=== PATIENT | male | born 1995 | race Caucasian/White ===

== ENCOUNTER 2016-06-12 20:25 | Emergency (ER) | payer OTHER ==
[2016-06-12 20:54] VITALS: BP 152/93
--- NOTE | 2016-06-12 20:58 | ED ---
mily Alvarez Timothy, scribed for Ricki Armendariz MD on 06/12/16 at 2053 . Psychiatric Complaint - HPI Summary HPI Summary: Drew Barber is a 20 yo male presenting to [facility] for a mental health evaluation. He is presenting to [facility] voluntarily. He states he feels paranoid, which has been going on for the past 2 weeks. He states he put his phone in the toilet, which prompted him to present tonight. He states he is not on medication for paranoia. He states he took LSD at [employer] two years ago and since then has had occasional out-of body experiences. He denies any previous MHx. - History Of Current Complaint Time Seen by Provider: 06/12/16 20:46 Hx Obtained From: Patient Onset/Duration: Sudden Onset, Lasting Weeks, Still Present Timing: Constant Severity Initially: Moderate Severity Currently: Moderate Character: Anxious - paranoid Associated Signs And Symptoms: Positive: Paranoid Behavior - Allergies/Home Medications Allergies/Adverse Reactions: Allergies Allergy/AdvReac Type Severity Reaction Status Date / Time No Known Allergies Allergy Verified 08/27/15 15:40 PMH/Surg Hx/FS Hx/Imm Hx Psychiatric History: Reports: Hx Anxiety, Hx Attention Deficit Hyperactivity Disorder, Hx Depression, Hx Panic Disorder, Hx Community Mental Health Tx - AA/ NA/therapist, Hx of Violent Episodes Against Others, Hx Substance Abuse, Other Psychiatric Issues/Disorders - brother has schizophrenia Denies: Hx Eating Disorder, Hx Post Traumatic Stress Disorder, Hx Inpatient Treatment, Hx Schizophrenia, Hx Bipolar Disorder, Hx Suicide Attempt - Family History Known Family History: Positive: Other - schizophrenia, bipolar - Social History Alcohol Use: None Hx Substance Use: Yes - mushrooms, was prescribed adderall but made him anxious Substance Use Type: Reports: Marijuana, Other Substance Use Comment - Amount & Last Used: adderal, lionsmane mushrooms Hx Tobacco Use: No Smoking Status (MU): Never Smoked Tobacco Review of Systems Constitutional: Negative Eyes: Negative ENT: Negative Cardiovascular: Negative Respiratory: Negative Gastrointestinal: Negative Genitourinary: Negative Musculoskeletal: Negative Skin: Negative Neurological: Negative Psychological: Other - paranoia All Other Systems Reviewed And Are Negative: Yes Physical Exam Triage Information Reviewed: Yes Vital Signs On Initial Exam: Initial Vitals Temp Pulse Resp BP Pulse Ox 98.2 F 125 24 152/93 98 06/12/16 20:31 06/12/16 20:31 06/12/16 20:31 06/12/16 20:31 06/12/16 20:31 Vital Signs Reviewed: Yes Appearance: Positive: Well-Appearing, No Pain Distress Skin: Positive: Warm Eyes: Positive: SHELL ENT: Positive: Hearing grossly normal Neck: Positive: Supple Respiratory/Lung Sounds: Positive: Clear to Auscultation, Breath Sounds Present Cardiovascular: Positive: RRR Abdomen Description: Positive: Nontender, Soft Musculoskeletal: Positive: Strength/ROM Intact Neurological: Positive: Alert, Oriented to Person Place, Time Psychiatric: Positive: Depressed Diagnostics - Vital Signs Vital Signs Temp Pulse Resp BP Pulse Ox 06/12/16 20:31 98.2 F 125 24 152/93 98 - Laboratory Result Diagrams: 06/12/16 21:20 06/12/16 21:20 Lab Statement: Any lab studies that have been ordered have been reviewed, and results considered in the medical decision making process. Re-Evaluation - Re-Evaluation First Eval Comment: pt seen and cleared by crisis Course/Dx - Differential Dx/Clinical Impression Provider Diagnosis: Anxiety Discharge - Discharge Plan Condition: Stable Disposition: HOME Referrals: Enoc López MD [Primary Care Provider] - The documentation as recorded by the mily navarro Timothy accurately reflects the service I personally performed and the decisions made by me, Ricki Armendariz MD.
[2016-06-12 21:19] LABS: Urine Bacteria Absent (Absent); Urine Bilirubin Negative (Negative); Urine Glucose Negative (Negative); Urine Nitrite Negative (Negative)
[2016-06-12 21:24] LABS: Benzodiazepine Urine Screen None Detected (None Detect)
[2016-06-12 21:30] LABS: Hematocrit 49 % (42-52); Hemoglobin 16.6 g/dl (14.0-18.0); Mean Corpuscular HGB Conc 34 g/dl (31-36); Mean Corpuscular Hemoglobin 28 pg (27-31); Mean Corpuscular Volume 83 fL (80-94); Mean Platelet Volume 14 um3 (7.4-10.4); Red Blood Count 5.91 10^6/ul (4.0-5.4); Red Cell Distribution Width 13 % (10.5-15); White Blood Count 12.7 10^3/ul (3.5-10.8)
[2016-06-12 21:43] LABS: ALT 13 U/L (7-52); AST 15 U/L (13-39); Albumin 4.4 g/dL (3.2-5.2); Alkaline Phosphatase 118 U/L (34-104); Anion Gap 8 mmol/L (2-11); BUN/Creatinine Ratio 11.9 (8-20); Blood Urea Nitrogen 10 mg/dL (6-24); CO2 Carbon Dioxide 23 mmol/L (22-32); Calcium 9.6 mg/dL (8.6-10.3); Chloride 104 mmol/L (101-111); EGFR African American 146.9 (>60); EGFR Non-African American 114.3 (>60); Globulin 3.1 g/dL (2-4); Glucose 107 mg/dL (70-100); Potassium 3.1 mmol/L (3.5-5.0); Sodium 135 mmol/L (133-145); Total Protein 7.5 g/dL (6.4-8.9)
[2016-06-12 22:08] LABS: Acetaminophen < 15 mcg/mL; Alcohol < 10 mg/dL (<10); Salicylate < 2.50 mg/dL (<30)
[2016-06-12 22:18] LABS: TSH (Thyroid Stimulating Horm) 1.42 mcIU/mL (0.34-5.60)
== END 2016-06-12 23:55 | disposition home or self-care (01) ==
LOC: ED 20:25
DX: F41.9 Anxiety disorder, unspecified (principal)
CPT/HCPCS: 36415; 80053; 80307; 80320; 80329; 81003; 81015; 84443; 85025; 99283; G0480

== ENCOUNTER 2016-06-14 16:36 | Inpatient (IN) | payer OTHER ==
[2016-06-14 17:57] LABS: Hematocrit 51 % (42-52); Mean Corpuscular HGB Conc 33 g/dl (31-36); Mean Corpuscular Hemoglobin 28 pg (27-31); Mean Corpuscular Volume 84 fL (80-94); Mean Platelet Volume 14 um3 (7.4-10.4); Red Blood Count 6.05 10^6/ul (4.0-5.4); Red Cell Distribution Width 13 % (10.5-15); White Blood Count 10.9 10^3/ul (3.5-10.8)
[2016-06-14 17:58] LABS: Add Diff/Slide Review? Slide Review Added; Comments Flag Yes
[2016-06-14 18:00] LABS: ALT 17 U/L (7-52); AST 20 U/L (13-39); Albumin 4.8 g/dL (3.2-5.2); Alkaline Phosphatase 122 U/L (34-104); Anion Gap 11 mmol/L (2-11); Blood Urea Nitrogen 11 mg/dL (6-24); CO2 Carbon Dioxide 24 mmol/L (22-32); Chloride 102 mmol/L (101-111); EGFR African American 132.3 (>60); EGFR Non-African American 102.9 (>60); Globulin 3.4 g/dL (2-4); Glucose 90 mg/dL (70-100); Potassium 3.6 mmol/L (3.5-5.0); Sodium 137 mmol/L (133-145); Total Protein 8.2 g/dL (6.4-8.9)
[2016-06-14 18:20] LABS: Urine Bilirubin Negative (Negative); Urine Glucose Negative (Negative); Urine Nitrite Negative (Negative)
[2016-06-14 18:21] LABS: Acetaminophen < 15 mcg/mL; Alcohol < 10 mg/dL (<10); Salicylate < 2.50 mg/dL (<30)
[2016-06-14 18:29] LABS: TSH (Thyroid Stimulating Horm) 1.32 mcIU/mL (0.34-5.60)
[2016-06-14 18:29] LABS: Benzodiazepine Urine Screen None Detected (None Detect)
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
--- NOTE | 2016-06-15 00:37 | ED ---
mily Alvarez Timothy, magdalena for Parish Helton on 06/15/16 at 0036 . Progress - Progress Note Progress Note: Drew Barber is a 20 yo male presenting to [facility] with SI and paranoia. - Consult/PCP Time Called: 20:14 Course/Dx - Course Course Of Treatment: Drew Barber is a 20 yo male presenting to [facility] with SI and paranoia. After mental health evaluation, he will be admitted to [facility] with SI. - Diagnoses Provider Diagnoses: Mental health problem The documentation as recorded by the mily navarro Timothy accurately reflects the service I personally performed and the decisions made by Sunitha prieto Emmanuel.
[2016-06-15] MEDS ORDERED: Acetaminophen TAB* 325 MG PO PRN (04:07)
[2016-06-15] MEDS ORDERED: Al Hydrox/Mg Hydrox/Simet LIQ* 30 ML UDC PO PRN (04:07)
[2016-06-15] MEDS ORDERED: QUEtiapine TAB* 25 MG PO PRN (04:08)
[2016-06-15] MEDS: Vitamin THERAPEUTIC TAB PO SCH (08:25)
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
[2016-06-15] MEDS ORDERED: Nicotine Inhaler* 10 MG AMP INH PRN (17:32)
[2016-06-15] MEDS: Paliperidone TAB* 3 MG TAB PO SCH (21:05)
[2016-06-16] MEDS: Paliperidone TAB* 3 MG TAB PO SCH ×2 (09:25→20:57)
[2016-06-16] MEDS: Vitamin THERAPEUTIC TAB PO SCH (09:25)
--- NOTE | 2016-06-16 13:32 | PN ---
Subjective - Subjective Service Type: [id number] Hosp care 25 min moderate complexity Subjective: This clinician took over Merced's care today and we met for about 20 minutes in the comfort room. I left messages with his father, Nathaniel Barber, and his therapist, Mandeep Lenz. The patient is quite grandiose, telling me that his special skill, one which he has been granted unique gifts in, is making money. 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 "Faith changed my perspective...it changed my life." He goes into detail about persecutory delusions of how his older brother had hacked into his cell phone and caught him with pornographic images, including some homosexual content , and had embarrassed him by confronting him. An additional stressor has been his abstinence from cannabis over the last several weeks since becoming, in his words, an informant for the [place] police and having his dealer arrested. He has been feeling watched and followed since that time. He does endorse HI with thoughts, but not intent, to shoot his brother. He also voices ideas of reference here on the unit, reporting that he could control his roommate's actions last night as they were in their room sleeping. The patient refused his Invega this AM but is educated a little about this and agrees to take it tonight. He does acknowledge that he is having a psychotic episode. Objective - Appearance Appearance: Well Developed/Nourished Dysmorphic Features: No Hygiene: Normal Grooming: Well Kept - Behavior Psychomotor Activities: Normal Exhibits Abnormal Movement: No - Attitude and Relatedness Attitude and Relatedness: Psychotically Related Eye Contact: Fair - Speech Quality: Unpressured Latencies: Normal Quantity: Appropriate - Mood Patient's Decription of Mood: "Anxious" - Affect Observed Affect: Unvariable Affect Consistent with: Dysphoria - Thought Process Patient's Thought Process: Circumstantial Thought Content: Yes Homicidal Ideation, Yes Paranoid Ideation, No Passive Wish, No Suicidal Planning - Sensorium Experiencing Hallucinations: No, Sensorium is Clear Type of Hallucinations: Visual: No, Auditory: No, Command: No - Level of Consciousness Level of Consciousness: Alert Orientation: Yes Intact, Yes Orientated to Time, Yes Orientated to Place, Yes Orientated to Person - Impulse Control Impulse Control: Poor - Insight and Judgement Insight and Judgement: Impaired - Group Participation Particating in Group Activities: No - Medication Management Medication Management Adherence: No Assessment - Assessment Merits Inpatient Hospitalization: For Immediate Safety, For Stabilization Inpatient DSM-IV Dx: Unspecified Psychotic DO Clinical Impression: 20 y.o. single, white male with a history of habitual cannabis and remote hallucinogen abuse presented with psychotic symptoms of paranoia and HI directed at his brother. Plan - Plan Treatment Plan: Name: MERCED BARBER Birthdate: 1995 [id number] The patient is encouraged to comply with his prescribed paliperidone 3mg PO qday. Will seek collateral contact with the patient's family and outpatient therapist. Would perhaps consider long-term residential dual-diagnosis treatment as the family does have assets to pay for this. Will order MMPI. Continued Medication Management: Start Medication Medications: Current Medications Acetaminophen (Tylenol Tab*) 650 mg PO Q4H PRN PRN Reason: PAIN or TEMP > 101 F Al Hydrox/Mg Hydrox/Simethicone (Maalox Plus*) 30 ml PO Q4H PRN PRN Reason: INDIGESTION Clonazepam (Klonopin Tab(*)) 0.5 mg PO BID PRN PRN Reason: AGITATION/ANXIETY/INSOMNIA Multivitamins (Theragran Tab*) 1 tab PO DAILY [facility] Last Admin: 06/16/16 09:25 Dose: Not Given Nicotine (Nicotine Inhaler*) 10 mg INH Q2H PRN PRN Reason: CRAVING Paliperidone (Invega Tab*) 3 mg PO DAILY [facility] Last Admin: 06/16/16 09:25 Dose: Not Given Quetiapine Fumarate (Seroquel Tab*) 50 mg PO Q2H PRN PRN Reason: AGITATION - Discharge Plan Discharge Plan: Inpatient Hospitalization
--- NOTE | 2016-06-17 11:09 | PN ---
Subjective - Subjective Service Type: [id number] Hosp care 25 min moderate complexity Subjective: Merced was quite odd with me as we met in the hallway outside his room. He is complaining about environmental exposure to the bleach solution used by housekeeping to clean his bathroom. "I have a biological reaction to the chemicals. I have to get off this unit!" He makes intense eye contact, repetitively stating "I'm a human being. I have a soul." He insists that I look into his eyes and is bizarre in his interpersonal style. "It's OK. Now that I see into your eyes I know you care. You do great things here and it's inspiring me to make the world a better place." The patient informs me that he took his medication last night but staff confirms that this is untrue. I spoke with the patient outpatient therapist, Mandeep Obregon, who is advocating for residential treatment following discharge from the [facility]. The patient and I discuss residential treatment briefly and he seems to be in agreement that this would be helpful. Objective - Appearance Appearance: Well Developed/Nourished Dysmorphic Features: No Hygiene: Normal Grooming: Fairly Well Kept - Behavior Psychomotor Activities: Normal Exhibits Abnormal Movement: No - Attitude and Relatedness Attitude and Relatedness: Psychotically Related Eye Contact: Good - Speech Quality: Pressured Latencies: Normal Quantity: Appropriate - Mood Patient's Decription of Mood: "Upset" - Affect Observed Affect: Tense Affect Consistent with: Dysphoria - Thought Process Patient's Thought Process: Circumstantial Thought Content: Yes Paranoid Ideation, No Passive Wish, No Suicidal Planning, No Homicidal Ideation - Sensorium Experiencing Hallucinations: No, Sensorium is Clear Type of Hallucinations: Visual: No, Auditory: No, Command: No - Level of Consciousness Level of Consciousness: Alert Orientation: Yes Intact, Yes Orientated to Time, Yes Orientated to Place, Yes Orientated to Person - Impulse Control Impulse Control: Poor - Insight and Judgement Insight and Judgement: Impaired - Group Participation Particating in Group Activities: No - Medication Management Medication Management Adherence: No Assessment - Assessment Merits Inpatient Hospitalization: For Immediate Safety, For Stabilization Inpatient DSM-IV Dx: Unspecified Psychotic DO Clinical Impression: 20 y.o. single, white male with a history of habitual cannabis and remote hallucinogen abuse presented with psychotic symptoms of paranoia and HI directed at his brother. Plan - Plan Treatment Plan: Name: MERCED RANGEL Birthdate: 1995 [id number] The patient is encouraged to comply with his prescribed paliperidone 3mg PO qday. Will seek collateral contact with the patient's family. Would perhaps consider long-term residential dual-diagnosis treatment as the family does have assets to pay for this. Await MMPI. Continued Medication Management: Start Medication Medications: Current Medications Acetaminophen (Tylenol Tab*) 650 mg PO Q4H PRN PRN Reason: PAIN or TEMP > 101 F Al Hydrox/Mg Hydrox/Simethicone (Maalox Plus*) 30 ml PO Q4H PRN PRN Reason: INDIGESTION Clonazepam (Klonopin Tab(*)) 0.5 mg PO BID PRN PRN Reason: AGITATION/ANXIETY/INSOMNIA Multivitamins (Theragran Tab*) 1 tab PO DAILY [facility] Last Admin: 06/16/16 09:25 Dose: Not Given Nicotine (Nicotine Inhaler*) 10 mg INH Q2H PRN PRN Reason: CRAVING Paliperidone (Invega Tab*) 3 mg PO BEDTIME [facility] Last Admin: 06/16/16 20:57 Dose: Not Given Quetiapine Fumarate (Seroquel Tab*) 50 mg PO Q2H PRN PRN Reason: AGITATION - Discharge Plan Discharge Plan: Inpatient Hospitalization
[2016-06-17] MEDS: Vitamin THERAPEUTIC TAB PO SCH (11:10)
--- NOTE | 2016-06-17 11:50 | PN ---
[facility]: Group Therapy Note - Service Type Service Type: [id number] Group Psychotherapy - Cognitive Behavioral Group Therapy: Drew presented as angry and irritable in cbt programming, engaging in an accusatory discussion regarding being held by the hospital for financial gain. He remained angry and defiant in discussion, and left the group abruptly. He later apologized in individual contact, citing how he has been struggling with family conflict, and is open to receiving help.
[2016-06-17] MEDS ORDERED: Paliperidone TAB* 3 MG TAB PO ONE (12:00)
[2016-06-17] MEDS: Paliperidone TAB* 3 MG TAB PO SCH ×2 (18:44→22:04)
[2016-06-17] MEDS: clonazePAM TAB(*) 0.5 MG PO PRN (18:44)
[2016-06-18] MEDS: Vitamin THERAPEUTIC TAB PO SCH (10:31)
--- NOTE | 2016-06-18 18:09 | PN ---
Subjective - Subjective Service Type: 15960 Hosp care 15 min low complexity Subjective: Merced was in his room isolated from rest of the patient. Invited me to his bedside, but didn't make any eye contact. Spontaniuosly said that he was doing very well. I am not suicidal, homicidal or angry anymore. Taking all my meds he reports. Objective - Appearance Appearance: Well Developed/Nourished Dysmorphic Features: No Hygiene: Normal Grooming: Fairly Well Kept - Behavior Psychomotor Activities: Normal Exhibits Abnormal Movement: No - Attitude and Relatedness Attitude and Relatedness: Cooperative Eye Contact: Poor - Speech Quality: Unpressured Latencies: Normal Quantity: Appropriate - Mood Patient's Decription of Mood: "Fine" - Affect Observed Affect: Depressed Affect Consistent with: Dysphoria - Thought Process Patient's Thought Process: Coherent, Circumstantial Thought Content: No Passive Wish, No Suicidal Planning, No Homicidal Ideation, No Paranoid Ideation - Sensorium Experiencing Hallucinations: No, Sensorium is Clear Type of Hallucinations: Visual: No, Auditory: No, Command: No - Level of Consciousness Level of Consciousness: Alert Orientation: Yes Intact, Yes Orientated to Time, Yes Orientated to Place, Yes Orientated to Person - Impulse Control Impulse Control: Tenuous - Insight and Judgement Insight and Judgement: Poor - Group Participation Particating in Group Activities: No - Medication Management Medication Management Adherence: Yes Assessment - Assessment Merits Inpatient Hospitalization: For Stabilization, Pending Safe DC Plan Inpatient DSM-IV Dx: Unspecified Psychotic DO Plan - Plan Treatment Plan: Name: MERCED RANGEL Birthdate: 1995 [id number] Continued Medication Management: Continue Outpt Medication Medications: Current Medications Acetaminophen (Tylenol Tab*) 650 mg PO Q4H PRN PRN Reason: PAIN or TEMP > 101 F Al Hydrox/Mg Hydrox/Simethicone (Maalox Plus*) 30 ml PO Q4H PRN PRN Reason: INDIGESTION Clonazepam (Klonopin Tab(*)) 0.5 mg PO BID PRN PRN Reason: AGITATION/ANXIETY/INSOMNIA Last Admin: 06/17/16 18:44 Dose: 0.5 mg Multivitamins (Theragran Tab*) 1 tab PO DAILY [facility] Last Admin: 06/18/16 10:31 Dose: Not Given Nicotine (Nicotine Inhaler*) 10 mg INH Q2H PRN PRN Reason: CRAVING Paliperidone (Invega Tab*) 3 mg PO BEDTIME [facility] Last Admin: 06/17/16 22:04 Dose: Not Given Quetiapine Fumarate (Seroquel Tab*) 50 mg PO Q2H PRN PRN Reason: AGITATION - Discharge Plan Discharge Plan: Outpatient Follow Up Outpatient Program: TBD
[2016-06-18] MEDS: Paliperidone TAB* 3 MG TAB PO SCH (21:35)
[2016-06-19] MEDS: Vitamin THERAPEUTIC TAB PO SCH (08:50)
[2016-06-19] MEDS: clonazePAM TAB(*) 0.5 MG PO PRN ×2 (14:00→20:03)
[2016-06-19] MEDS: Paliperidone TAB* 3 MG TAB PO SCH (20:01)
[2016-06-20] MEDS: clonazePAM TAB(*) 0.5 MG PO PRN ×2 (08:27→14:01)
[2016-06-20] MEDS: Vitamin THERAPEUTIC TAB PO SCH (08:49)
--- NOTE | 2016-06-20 15:23 | PN ---
Subjective - Subjective Service Type: [id number] Hosp care 15 min low complexity Subjective: Merced has been declining his paliperidone, stating "It made me take strange hallways in my mind." He has less intense eye contact this morning than last week and does not appear quite as paranoid. He does complain of a lot of anxiety symptoms throughout his life, particularly of a social variety, and feels like clonazepam is the best medication for this. He is educated about the limits of benzodiazapines and we discuss a potential trial of an SRI, which he agrees to. He denies SI or HI. Objective - Appearance Appearance: Well Developed/Nourished Dysmorphic Features: No Hygiene: Normal Grooming: Well Kept - Behavior Psychomotor Activities: Normal Exhibits Abnormal Movement: No - Attitude and Relatedness Attitude and Relatedness: Psychotically Related Eye Contact: Fair - Speech Quality: Unpressured Latencies: Normal Quantity: Appropriate - Mood Patient's Decription of Mood: "Anxious" - Affect Observed Affect: Unvariable Affect Consistent with: Dysphoria - Thought Process Patient's Thought Process: Circumstantial Thought Content: Yes Paranoid Ideation, No Passive Wish, No Suicidal Planning, No Homicidal Ideation - Sensorium Experiencing Hallucinations: No, Sensorium is Clear Type of Hallucinations: Visual: No, Auditory: No, Command: No - Level of Consciousness Level of Consciousness: Alert Orientation: Yes Intact, Yes Orientated to Time, Yes Orientated to Place, Yes Orientated to Person - Impulse Control Impulse Control: Tenuous - Insight and Judgement Insight and Judgement: Poor - Group Participation Particating in Group Activities: No - Medication Management Medication Management Adherence: Partial Assessment - Assessment Merits Inpatient Hospitalization: For Immediate Safety, For Stabilization Inpatient DSM-IV Dx: Unspecified Psychotic DO Clinical Impression: 20 y.o. single, white male with a history of habitual cannabis and remote hallucinogen abuse presented with psychotic symptoms of paranoia and HI directed at his brother. Plan - Plan Treatment Plan: Name: MERCED RANGEL Birthdate: 1995 [id number] The patient is encouraged to comply with his prescribed paliperidone 3mg PO qday. A trial of citalopram 10mg PO qday will be initiated, mostly for anxiety. The patient's family will come in on Monday (06/22) for treatment and d/c planning. Would perhaps consider long-term residential dual-diagnosis treatment as the family does have assets to pay for this. Await MMPI. Continued Medication Management: Start Medication Medications: Current Medications Acetaminophen (Tylenol Tab*) 650 mg PO Q4H PRN PRN Reason: PAIN or TEMP > 101 F Al Hydrox/Mg Hydrox/Simethicone (Maalox Plus*) 30 ml PO Q4H PRN PRN Reason: INDIGESTION Citalopram Hydrobromide (Celexa Tab*) 10 mg PO DAILY [facility] Clonazepam (Klonopin Tab(*)) 0.5 mg PO BID PRN PRN Reason: AGITATION/ANXIETY/INSOMNIA Last Admin: 06/20/16 14:01 Dose: 0.5 mg Multivitamins (Theragran Tab*) 1 tab PO DAILY [facility] Last Admin: 06/20/16 08:49 Dose: Not Given Nicotine (Nicotine Inhaler*) 10 mg INH Q2H PRN PRN Reason: CRAVING Paliperidone (Invega Tab*) 3 mg PO BEDTIME [facility] Last Admin: 06/19/16 20:01 Dose: Not Given Quetiapine Fumarate (Seroquel Tab*) 50 mg PO Q2H PRN PRN Reason: AGITATION - Discharge Plan Discharge Plan: Inpatient Hospitalization
[2016-06-20] MEDS: Citalopram TAB* 10 MG PO SCH (16:17)
[2016-06-20] MEDS: Paliperidone TAB* 3 MG TAB PO SCH (22:24)
[2016-06-21] MEDS: clonazePAM TAB(*) 0.5 MG PO PRN ×2 (04:39→10:32)
[2016-06-21] MEDS: Citalopram TAB* 10 MG PO SCH (09:14)
[2016-06-21] MEDS: Vitamin THERAPEUTIC TAB PO SCH (09:14)
--- NOTE | 2016-06-21 11:45 | PN ---
Subjective - Subjective Service Type: [id number] Hosp care 15 min low complexity Subjective: The patient remains paranoid and informs me that he thinks a male peer is stalking him and attempting to gain information about him here on the unit so he can kill him after discharge. He has been refusing the paliperidone, claiming that it made him feel ill. He is willing to switch antipsychotics. Objective - Appearance Appearance: Well Developed/Nourished Dysmorphic Features: No Hygiene: Normal Grooming: Fairly Well Kept - Behavior Psychomotor Activities: Normal Exhibits Abnormal Movement: No - Attitude and Relatedness Attitude and Relatedness: Cooperative Eye Contact: Fair - Speech Quality: Unpressured Latencies: Normal Quantity: Appropriate - Mood Patient's Decription of Mood: "Great" - Affect Observed Affect: Tense Affect Consistent with: Dysphoria - Thought Process Patient's Thought Process: Circumstantial Thought Content: Yes Paranoid Ideation, No Passive Wish, No Suicidal Planning, No Homicidal Ideation - Sensorium Experiencing Hallucinations: No, Sensorium is Clear Type of Hallucinations: Visual: No, Auditory: No, Command: No - Level of Consciousness Level of Consciousness: Alert Orientation: Yes Intact, Yes Orientated to Time, Yes Orientated to Place, Yes Orientated to Person - Impulse Control Impulse Control: Poor - Insight and Judgement Insight and Judgement: Impaired - Group Participation Particating in Group Activities: No - Medication Management Medication Management Adherence: No Assessment - Assessment Merits Inpatient Hospitalization: For Immediate Safety, For Stabilization Inpatient DSM-IV Dx: Unspecified Psychotic DO Clinical Impression: 20 y.o. single, white male with a history of habitual cannabis and remote hallucinogen abuse presented with psychotic symptoms of paranoia and HI directed at his brother. Plan - Plan Treatment Plan: Name: MERCED RANGEL Birthdate: 1995 [id number] The patient is not adhering with paliperidone due to tolerability concerns. We will discontinue this in favor of a trial of quetiapine 100mg PO qhs. A trial of citalopram 10mg PO qday has been initiated, mostly for anxiety. The patient' s family will come in tomorrow, Monday (06/22) for treatment and d/c planning. Would perhaps consider long-term residential dual-diagnosis treatment as the family does have assets to pay for this. Continued Medication Management: Start Medication Medications: Current Medications Acetaminophen (Tylenol Tab*) 650 mg PO Q4H PRN PRN Reason: PAIN or TEMP > 101 F Al Hydrox/Mg Hydrox/Simethicone (Maalox Plus*) 30 ml PO Q4H PRN PRN Reason: INDIGESTION Citalopram Hydrobromide (Celexa Tab*) 10 mg PO DAILY [facility] Last Admin: 06/21/16 09:14 Dose: 10 mg Clonazepam (Klonopin Tab(*)) 0.5 mg PO BID PRN PRN Reason: AGITATION/ANXIETY/INSOMNIA Last Admin: 06/21/16 10:32 Dose: 0.5 mg Multivitamins (Theragran Tab*) 1 tab PO DAILY [facility] Last Admin: 06/21/16 09:14 Dose: 1 tab Nicotine (Nicotine Inhaler*) 10 mg INH Q2H PRN PRN Reason: CRAVING Quetiapine Fumarate (Seroquel Tab*) 50 mg PO Q2H PRN PRN Reason: AGITATION Last Admin: 06/21/16 04:39 Dose: 50 mg Quetiapine Fumarate (Seroquel Tab*) 100 mg PO BEDTIME [facility] - Discharge Plan Discharge Plan: Inpatient Hospitalization
[2016-06-21] MEDS: QUEtiapine TAB* 100 MG PO SCH (20:49)
[2016-06-22] MEDS: Vitamin THERAPEUTIC TAB PO SCH (09:17)
[2016-06-22] MEDS: Citalopram TAB* 10 MG PO SCH (09:18)
[2016-06-22] MEDS: clonazePAM TAB(*) 0.5 MG PO PRN ×2 (10:08→20:48)
[2016-06-22] MEDS ORDERED: Haloperidol TAB* 5 MG PO PRN (11:19)
--- NOTE | 2016-06-22 11:25 | PN ---
Subjective - Subjective Service Type: [id number] [facility] Subjective: This clinician met with the patient, along with ELMER Conroy and the patient's parents for a family meeting. Merced was overtly paranoid during the entirety of the session, insisting that two recent peers who have been discharged from the unit were admitted to "vet me" in advance of killing him. When his mother protests the reality of this, he shuts her down, stating "You' re naive. You haven't been a criminal like me, I know how these people operate. " He also accuses others of looking through his notebook and the hospital of using mind-controlling substances in the cleaning solutions. He denies HI. The patient has selective adherence to medications and the majority of his parents' and our speech towards him represented efforts to persuade him to take his medications as directed. Objective - Appearance Appearance: Well Developed/Nourished Dysmorphic Features: No Hygiene: Normal Grooming: Fairly Well Kept - Behavior Psychomotor Activities: Normal Exhibits Abnormal Movement: No - Attitude and Relatedness Attitude and Relatedness: Guarded Eye Contact: Fair - Speech Quality: Unpressured Latencies: Normal Quantity: Appropriate - Mood Patient's Decription of Mood: "Upset" - Affect Observed Affect: Tense Affect Consistent with: Dysphoria - Thought Process Patient's Thought Process: Circumstantial Thought Content: Yes Paranoid Ideation, No Passive Wish, No Suicidal Planning, No Homicidal Ideation - Sensorium Experiencing Hallucinations: No, Sensorium is Clear Type of Hallucinations: Visual: No, Auditory: No, Command: No - Level of Consciousness Level of Consciousness: Alert Orientation: Yes Intact, Yes Orientated to Time, Yes Orientated to Place, Yes Orientated to Person - Impulse Control Impulse Control: Poor - Insight and Judgement Insight and Judgement: Impaired - Group Participation Particating in Group Activities: No - Medication Management Medication Management Adherence: Partial Assessment - Assessment Merits Inpatient Hospitalization: For Immediate Safety, For Stabilization Inpatient DSM-IV Dx: Unspecified Psychotic DO Clinical Impression: 20 y.o. single, white male with a history of habitual cannabis and remote hallucinogen abuse presented with psychotic symptoms of paranoia and HI directed at his brother. Plan - Plan Treatment Plan: Name: MERCED RANGEL Birthdate: 1995 [id number] The patient remains in limited adherence with medications. He is currently prescribed a trial of quetiapine 100mg PO qhs and citalopram 10mg PO qday. He is not nearly well enough to consider discharge at this point and his parents are invited to return early next week, provided that he's improving at that point. Continued Medication Management: Start Medication Medications: Current Medications Acetaminophen (Tylenol Tab*) 650 mg PO Q4H PRN PRN Reason: PAIN or TEMP > 101 F Al Hydrox/Mg Hydrox/Simethicone (Maalox Plus*) 30 ml PO Q4H PRN PRN Reason: INDIGESTION Citalopram Hydrobromide (Celexa Tab*) 10 mg PO DAILY [facility] Last Admin: 06/22/16 09:18 Dose: 10 mg Clonazepam (Klonopin Tab(*)) 0.5 mg PO BID PRN PRN Reason: AGITATION/ANXIETY/INSOMNIA Last Admin: 06/22/16 10:08 Dose: 0.5 mg Haloperidol (Haldol Tab*) 5 mg PO Q6H PRN PRN Reason: AGITATION/ANXIETY/INSOMNIA Multivitamins (Theragran Tab*) 1 tab PO DAILY [facility] Last Admin: 06/22/16 09:17 Dose: 1 tab Nicotine (Nicotine Inhaler*) 10 mg INH Q2H PRN PRN Reason: CRAVING Quetiapine Fumarate (Seroquel Tab*) 100 mg PO BEDTIME [facility] Last Admin: 06/21/16 20:49 Dose: Not Given - Discharge Plan Discharge Plan: Inpatient Hospitalization
[2016-06-22] MEDS: QUEtiapine TAB* 100 MG PO SCH (20:48)
[2016-06-23] MEDS: Citalopram TAB* 10 MG PO SCH (09:36)
[2016-06-23] MEDS: Vitamin THERAPEUTIC TAB PO SCH (09:39)
[2016-06-23] MEDS: clonazePAM TAB(*) 0.5 MG PO PRN ×2 (09:47→16:25)
--- NOTE | 2016-06-23 10:51 | PN ---
Subjective - Subjective Service Type: [id number] Hosp care 15 min low complexity Subjective: The patient is compliant with medications but remains paranoid. "I'll need to go to a rehab or someplace far away from here after leaving this place. There are too many criminals looking for me." He expresses that he doesn't trust certain staff members but won't elaborate on this. He denies SI or HI. Objective - Appearance Appearance: Well Developed/Nourished Dysmorphic Features: No Hygiene: Normal Grooming: Well Kept - Behavior Psychomotor Activities: Normal Exhibits Abnormal Movement: No - Attitude and Relatedness Attitude and Relatedness: Guarded Eye Contact: Fair - Speech Quality: Unpressured Latencies: Normal Quantity: Appropriate - Mood Patient's Decription of Mood: "Good" - Affect Observed Affect: Tense Affect Consistent with: Dysphoria - Thought Process Patient's Thought Process: Circumstantial Thought Content: Yes Paranoid Ideation, No Passive Wish, No Suicidal Planning, No Homicidal Ideation - Sensorium Experiencing Hallucinations: No, Sensorium is Clear Type of Hallucinations: Visual: No, Auditory: No, Command: No - Level of Consciousness Level of Consciousness: Alert Orientation: Yes Intact, Yes Orientated to Time, Yes Orientated to Place, Yes Orientated to Person - Impulse Control Impulse Control: Poor - Insight and Judgement Insight and Judgement: Impaired - Group Participation Particating in Group Activities: No - Medication Management Medication Management Adherence: Partial Assessment - Assessment Merits Inpatient Hospitalization: For Immediate Safety, For Stabilization Inpatient DSM-IV Dx: Unspecified Psychotic DO Clinical Impression: 20 y.o. single, white male with a history of habitual cannabis and remote hallucinogen abuse presented with psychotic symptoms of paranoia and HI directed at his brother. Plan - Plan Treatment Plan: Name: MERCED RANGEL Birthdate: 1995 [id number] The patient remains paranoid, although his medication compliance has improved. He is currently prescribed a trial of quetiapine 100mg PO qhs and citalopram 10mg PO qday. He is not nearly well enough to consider discharge at this point and his parents are invited to return early next week, provided that he's improving at that point. Substance abuse rehab following psychiatric stabilization is an option. Continued Medication Management: Start Medication Medications: Current Medications Acetaminophen (Tylenol Tab*) 650 mg PO Q4H PRN PRN Reason: PAIN or TEMP > 101 F Al Hydrox/Mg Hydrox/Simethicone (Maalox Plus*) 30 ml PO Q4H PRN PRN Reason: INDIGESTION Citalopram Hydrobromide (Celexa Tab*) 10 mg PO DAILY [facility] Last Admin: 06/23/16 09:36 Dose: 10 mg Clonazepam (Klonopin Tab(*)) 0.5 mg PO BID PRN PRN Reason: AGITATION/ANXIETY/INSOMNIA Last Admin: 06/23/16 09:47 Dose: 0.5 mg Haloperidol (Haldol Tab*) 5 mg PO Q6H PRN PRN Reason: AGITATION/ANXIETY/INSOMNIA Nicotine (Nicotine Inhaler*) 10 mg INH Q2H PRN PRN Reason: CRAVING Quetiapine Fumarate (Seroquel Tab*) 100 mg PO BEDTIME [facility] Last Admin: 06/22/16 20:48 Dose: 100 mg - Discharge Plan Discharge Plan: Inpatient Hospitalization
--- NOTE | 2016-06-23 13:51 | PN ---
MHU: Group Therapy Note - Service Type Service Type: [id number] Group Psychotherapy - Cognitive Behavioral Group Therapy ( CBT):Patient was attentive and participatory in CBT programming this morning, and remained in good behavioral control. Patient expressed positive insights regarding relevant treatment interventions and goals.
[2016-06-23] MEDS: QUEtiapine TAB* 100 MG PO SCH (20:39)
[2016-06-24] MEDS: Citalopram TAB* 10 MG PO SCH (08:35)
[2016-06-24] MEDS: clonazePAM TAB(*) 0.5 MG PO PRN (08:35)
--- NOTE | 2016-06-24 13:42 | PN ---
Subjective - Subjective Service Type: [id number] Hosp care 15 min low complexity Subjective: The patient is seen in his room with his mother present during visiting hours. He reports good tolerance of his new medications and seems to express that he's ready for discharge, to which I see his mother shaking her head, no. He presents as still paranoid, believing at one point that it is the hospital's intention to send him to intermediate after discharge. "I see the criminals that come in and out of this place. Like that one eugenia with the glasses, talking about mushrooms and things. He's watching me." Objective - Appearance Appearance: Well Developed/Nourished Dysmorphic Features: No Hygiene: Normal Grooming: Fairly Well Kept - Behavior Psychomotor Activities: Normal Exhibits Abnormal Movement: No - Attitude and Relatedness Attitude and Relatedness: Psychotically Related Eye Contact: Fair - Speech Quality: Unpressured Latencies: Normal Quantity: Appropriate - Mood Patient's Decription of Mood: "Fine" - Affect Observed Affect: Tense Affect Consistent with: Dysphoria - Thought Process Patient's Thought Process: Circumstantial Thought Content: Yes Paranoid Ideation, No Passive Wish, No Suicidal Planning, No Homicidal Ideation - Sensorium Experiencing Hallucinations: No, Sensorium is Clear Type of Hallucinations: Visual: No, Auditory: No, Command: No - Level of Consciousness Level of Consciousness: Alert Orientation: Yes Intact, Yes Orientated to Time, Yes Orientated to Place, Yes Orientated to Person - Impulse Control Impulse Control: Poor - Insight and Judgement Insight and Judgement: Impaired - Group Participation Particating in Group Activities: No - Medication Management Medication Management Adherence: Yes Assessment - Assessment Merits Inpatient Hospitalization: For Immediate Safety, For Stabilization Inpatient DSM-IV Dx: Unspecified Psychotic DO Clinical Impression: 20 y.o. single, white male with a history of habitual cannabis and remote hallucinogen abuse presented with psychotic symptoms of paranoia and HI directed at his brother. Plan - Plan Treatment Plan: Name: MERCED RANGEL Birthdate: 1995 [id number] The patient remains paranoid, although his medication compliance has improved. He is currently prescribed a trial of quetiapine 100mg PO qhs and citalopram 10mg PO qday. Will increase quetiapine to 150mg PO qhs. Substance abuse rehab following psychiatric stabilization is an option. Continued Medication Management: Start Medication Medications: Current Medications Acetaminophen (Tylenol Tab*) 650 mg PO Q4H PRN PRN Reason: PAIN or TEMP > 101 F Al Hydrox/Mg Hydrox/Simethicone (Maalox Plus*) 30 ml PO Q4H PRN PRN Reason: INDIGESTION Citalopram Hydrobromide (Celexa Tab*) 10 mg PO DAILY [facility] Last Admin: 06/24/16 08:35 Dose: 10 mg Clonazepam (Klonopin Tab(*)) 0.5 mg PO BID PRN PRN Reason: AGITATION/ANXIETY/INSOMNIA Last Admin: 06/24/16 08:35 Dose: 0.5 mg Haloperidol (Haldol Tab*) 5 mg PO Q6H PRN PRN Reason: AGITATION/ANXIETY/INSOMNIA Nicotine (Nicotine Inhaler*) 10 mg INH Q2H PRN PRN Reason: CRAVING Quetiapine Fumarate (Seroquel Tab*) 150 mg PO BEDTIME [facility] - Discharge Plan Discharge Plan: Inpatient Hospitalization
[2016-06-24] MEDS ORDERED: QUEtiapine TAB* 100 MG PO SCH (21:00)
[2016-06-24] MEDS ORDERED: QUEtiapine TAB* 100 MG PO ONE (22:00)
[2016-06-25] MEDS: Citalopram TAB* 10 MG PO SCH (08:30)
[2016-06-25] MEDS: QUEtiapine TAB* 100 MG PO SCH (20:57)
[2016-06-25] MEDS ORDERED: QUEtiapine TAB* 100 MG PO SCH (21:00)
[2016-06-25] MEDS ORDERED: diPHENhydraMINE PO* 50 MG PO ONE (21:00)
[2016-06-26] MEDS: Citalopram TAB* 10 MG PO SCH (08:21)
[2016-06-26] MEDS: QUEtiapine TAB* 100 MG PO SCH (20:16)
[2016-06-27] MEDS: Citalopram TAB* 10 MG PO SCH (10:07)
--- NOTE | 2016-06-27 11:13 | PN ---
Subjective - Subjective Service Type: 33028 Hosp care 15 min low complexity Subjective: The patient remains psychotic and paranoid. He feels like the way certain staff members dress and act on the unit are somehow attributable to him. He also asks me vaguely if I know about the police surveilling him for criminal activities. He declined the increased dose of quetiapine over the weekend stating that he is afraid to be too sedated on the unit, lest someone try to assault him. He denies SI or HI. Objective - Appearance Appearance: Well Developed/Nourished Dysmorphic Features: No Hygiene: Normal Grooming: Well Kept - Behavior Psychomotor Activities: Normal Exhibits Abnormal Movement: No - Attitude and Relatedness Attitude and Relatedness: Psychotically Related Eye Contact: Fair - Speech Quality: Unpressured Latencies: Normal Quantity: Appropriate - Mood Patient's Decription of Mood: "Anxious" - Affect Observed Affect: Tense Affect Consistent with: Dysphoria - Thought Process Patient's Thought Process: Circumstantial Thought Content: Yes Paranoid Ideation, No Passive Wish, No Suicidal Planning, No Homicidal Ideation - Sensorium Experiencing Hallucinations: No, Sensorium is Clear Type of Hallucinations: Visual: No, Auditory: No, Command: No - Level of Consciousness Level of Consciousness: Alert Orientation: Yes Intact, Yes Orientated to Time, Yes Orientated to Place, Yes Orientated to Person - Impulse Control Impulse Control: Poor - Insight and Judgement Insight and Judgement: Impaired - Group Participation Particating in Group Activities: No - Medication Management Medication Management Adherence: Partial Assessment - Assessment Merits Inpatient Hospitalization: For Immediate Safety, For Stabilization Inpatient DSM-IV Dx: Unspecified Psychotic DO Clinical Impression: 20 y.o. single, white male with a history of habitual cannabis and remote hallucinogen abuse presented with psychotic symptoms of paranoia and HI directed at his brother. Plan - Plan Treatment Plan: Name: MERCED RANGEL Birthdate: 1995 [id number] The patient remains paranoid, although his medication compliance has improved. He is currently prescribed a trial of quetiapine 100mg PO qhs and citalopram 10mg PO qday. Will once again try to increase quetiapine to 150mg PO qhs. Substance abuse rehab following psychiatric stabilization is an option. Continued Medication Management: Start Medication Medications: Current Medications Acetaminophen (Tylenol Tab*) 650 mg PO Q4H PRN PRN Reason: PAIN or TEMP > 101 F Al Hydrox/Mg Hydrox/Simethicone (Maalox Plus*) 30 ml PO Q4H PRN PRN Reason: INDIGESTION Citalopram Hydrobromide (Celexa Tab*) 10 mg PO DAILY [facility] Last Admin: 06/27/16 10:07 Dose: 10 mg Clonazepam (Klonopin Tab(*)) 0.5 mg PO BID PRN PRN Reason: AGITATION/ANXIETY/INSOMNIA Last Admin: 06/24/16 08:35 Dose: 0.5 mg Haloperidol (Haldol Tab*) 5 mg PO Q6H PRN PRN Reason: AGITATION/ANXIETY/INSOMNIA Nicotine (Nicotine Inhaler*) 10 mg INH Q2H PRN PRN Reason: CRAVING Quetiapine Fumarate (Seroquel Tab*) 150 mg PO 2100 [facility] - Discharge Plan Discharge Plan: Inpatient Hospitalization
[2016-06-27] MEDS: QUEtiapine TAB* 100 MG PO SCH (21:02)
[2016-06-28 07:20] LABS: HDL Cholesterol 33.5 mg/dL
[2016-06-28] MEDS: Citalopram TAB* 10 MG PO SCH (09:37)
--- NOTE | 2016-06-28 11:15 | PN ---
Subjective - Subjective Service Type: 87251 Hosp care 25 min moderate complexity Subjective: The patient is discovered laughing to himself in his room. He had several instances of paranoid behavior yesterday and this morning that have been documented by staff, including claims that a peer is sending him subliminal messages by unplugging the coffee and that the steam station supervisor was trying to infect him with HIV. He again refused the 150mg dose of Seroquel last night, agreeing only to take 100mg. He does not appear to be improving. Objective - Appearance Appearance: Well Developed/Nourished Dysmorphic Features: No Hygiene: Normal Grooming: Fairly Well Kept - Behavior Psychomotor Activities: Normal Exhibits Abnormal Movement: No - Attitude and Relatedness Attitude and Relatedness: Psychotically Related Eye Contact: Fair - Speech Quality: Unpressured Latencies: Normal Quantity: Appropriate - Mood Patient's Decription of Mood: "Great" - Affect Observed Affect: Tense Affect Consistent with: Dysphoria - Thought Process Patient's Thought Process: Circumstantial Thought Content: Yes Paranoid Ideation, No Passive Wish, No Suicidal Planning, No Homicidal Ideation - Sensorium Experiencing Hallucinations: No, Sensorium is Clear Type of Hallucinations: Visual: No, Auditory: No, Command: No - Level of Consciousness Level of Consciousness: Alert Orientation: Yes Intact, Yes Orientated to Time, Yes Orientated to Place, Yes Orientated to Person - Impulse Control Impulse Control: Poor - Insight and Judgement Insight and Judgement: Impaired - Group Participation Particating in Group Activities: Yes - Medication Management Medication Management Adherence: Partial Assessment - Assessment Merits Inpatient Hospitalization: For Immediate Safety, For Stabilization Inpatient DSM-IV Dx: Unspecified Psychotic DO Clinical Impression: 20 y.o. single, white male with a history of habitual cannabis and remote hallucinogen abuse presented with psychotic symptoms of paranoia and HI directed at his brother. Plan - Plan Treatment Plan: Name: MERCED RANGEL Birthdate: 1995 [id number] The patient remains paranoid and his adherence is inconsistent. He is currently prescribed a trial of quetiapine 150mg PO qhs and citalopram 10mg PO qday. Will once again try to increase quetiapine to 150mg PO qhs. We will change his status to involuntary and cancel the family meeting for tomorrow. Can not rule out the necessity for T.O.O. at this time. Substance abuse rehab following psychiatric stabilization is an option. Continued Medication Management: Start Medication Medications: Current Medications Acetaminophen (Tylenol Tab*) 650 mg PO Q4H PRN PRN Reason: PAIN or TEMP > 101 F Al Hydrox/Mg Hydrox/Simethicone (Maalox Plus*) 30 ml PO Q4H PRN PRN Reason: INDIGESTION Citalopram Hydrobromide (Celexa Tab*) 10 mg PO DAILY [facility] Last Admin: 06/28/16 09:37 Dose: 10 mg Clonazepam (Klonopin Tab(*)) 0.5 mg PO BID PRN PRN Reason: AGITATION/ANXIETY/INSOMNIA Last Admin: 06/24/16 08:35 Dose: 0.5 mg Haloperidol (Haldol Tab*) 5 mg PO Q6H PRN PRN Reason: AGITATION/ANXIETY/INSOMNIA Nicotine (Nicotine Inhaler*) 10 mg INH Q2H PRN PRN Reason: CRAVING Quetiapine Fumarate (Seroquel Tab*) 150 mg PO 2100 [facility] Last Admin: 06/27/16 21:02 Dose: 100 mg - Discharge Plan Discharge Plan: Inpatient Hospitalization
[2016-06-28] MEDS: QUEtiapine TAB* 100 MG PO SCH (20:44)
[2016-06-29] MEDS: Citalopram TAB* 10 MG PO SCH (09:05)
--- NOTE | 2016-06-29 10:45 | PN ---
Subjective - Subjective Service Type: [id number] Hosp care 15 min low complexity Subjective: The patient continues to endorse paranoid ideation. For example, he is reported by staff to have made comments to the effect that a male peer is sending him subliminal messages to go buy cigarettes for him. During my interview he claims that his outpatient psychotherapist, Mandeep Lenz, is having other patients admitted to the unit specifically to forge friendships with him. He goes on to state that he does not trust his father, nor believe he has his best interests in mind when they meet during visiting hours. He did take the increased dose of quetiapine last night without incident. Objective - Appearance Appearance: Well Developed/Nourished Dysmorphic Features: No Hygiene: Normal Grooming: Well Kept - Behavior Psychomotor Activities: Normal Exhibits Abnormal Movement: No - Attitude and Relatedness Attitude and Relatedness: Psychotically Related Eye Contact: Fair - Speech Quality: Unpressured Latencies: Normal Quantity: Appropriate - Mood Patient's Decription of Mood: "Fine" - Affect Observed Affect: Tense Affect Consistent with: Dysphoria - Thought Process Patient's Thought Process: Circumstantial Thought Content: Yes Paranoid Ideation, No Passive Wish, No Suicidal Planning, No Homicidal Ideation - Sensorium Experiencing Hallucinations: No, Sensorium is Clear Type of Hallucinations: Visual: No, Auditory: No, Command: No - Level of Consciousness Level of Consciousness: Alert Orientation: Yes Intact, Yes Orientated to Time, Yes Orientated to Place, Yes Orientated to Person - Impulse Control Impulse Control: Poor - Insight and Judgement Insight and Judgement: Impaired - Group Participation Particating in Group Activities: Yes - Medication Management Medication Management Adherence: Yes Assessment - Assessment Merits Inpatient Hospitalization: For Immediate Safety, For Stabilization Inpatient DSM-IV Dx: Unspecified Psychotic DO Clinical Impression: 20 y.o. single, white male with a history of habitual cannabis and remote hallucinogen abuse presented with psychotic symptoms of paranoia and HI directed at his brother. Plan - Plan Treatment Plan: Name: MERCED RANGEL Birthdate: 1995 [id number] The patient remains paranoid and his adherence is inconsistent. He is currently prescribed a trial of quetiapine 150mg PO qhs and citalopram 10mg PO qday. Will increase quetiapine to 200mg PO qhs. Can not rule out the necessity for T.O.O. at this time. Substance abuse rehab following psychiatric stabilization is an option. Continued Medication Management: Start Medication Medications: Current Medications Acetaminophen (Tylenol Tab*) 650 mg PO Q4H PRN PRN Reason: PAIN or TEMP > 101 F Al Hydrox/Mg Hydrox/Simethicone (Maalox Plus*) 30 ml PO Q4H PRN PRN Reason: INDIGESTION Citalopram Hydrobromide (Celexa Tab*) 10 mg PO DAILY [facility] Last Admin: 06/29/16 09:05 Dose: 10 mg Clonazepam (Klonopin Tab(*)) 0.5 mg PO BID PRN PRN Reason: AGITATION/ANXIETY/INSOMNIA Last Admin: 06/24/16 08:35 Dose: 0.5 mg Haloperidol (Haldol Tab*) 5 mg PO Q6H PRN PRN Reason: AGITATION/ANXIETY/INSOMNIA Nicotine (Nicotine Inhaler*) 10 mg INH Q2H PRN PRN Reason: CRAVING Quetiapine Fumarate (Seroquel Tab*) 200 mg PO 2100 [facility] - Discharge Plan Discharge Plan: Inpatient Hospitalization
--- NOTE | 2016-06-29 10:58 | PN ---
MHU: Group Therapy Note - Service Type Service Type: [id number] Group Psychotherapy - Cognitive Behavioral Group Therapy ( CBT):Patient was attentive and participatory in CBT programming this morning, and remained in good behavioral control. Patient expressed positive insights regarding relevant treatment interventions and goals.
[2016-06-29] MEDS ORDERED: QUEtiapine TAB* 100 MG PO SCH (21:00)
[2016-06-30] MEDS: Citalopram TAB* 10 MG PO SCH (08:29)
--- NOTE | 2016-06-30 11:02 | PN ---
Subjective - Subjective Service Type: [id number] Hosp care 15 min low complexity Subjective: The patient remains paranoid, as displayed by several statements on his part to staff and to this observer. He has taken his outpatient provider, Mandeep Lenz , off the [facility], claiming that Mandeep is sending patients in to the hospital to pretend to be his friend. "He thinks I need more socialization but I don't. I take comfort in my own solitude." Randall also expresses that patients are sending him messages and making inferential statements about his sexuality. He complains of others staring at him and sitting unusually close to him. He is tolerating quetiapine well and denies SI or HI, but does indicate that he's putting a lot of effort into not reacting violently when he feels provoked by peers and staff. Objective - Appearance Appearance: Well Developed/Nourished Dysmorphic Features: No Hygiene: Normal Grooming: Fairly Well Kept - Behavior Psychomotor Activities: Normal Exhibits Abnormal Movement: No - Attitude and Relatedness Attitude and Relatedness: Psychotically Related Eye Contact: Fair - Speech Quality: Unpressured Latencies: Normal Quantity: Appropriate - Mood Patient's Decription of Mood: "Angry" - Affect Observed Affect: Tense Affect Consistent with: Dysphoria - Thought Process Patient's Thought Process: Circumstantial Thought Content: Yes Homicidal Ideation, Yes Paranoid Ideation, No Passive Wish, No Suicidal Planning - Sensorium Experiencing Hallucinations: No, Sensorium is Clear Type of Hallucinations: Visual: No, Auditory: No, Command: No - Level of Consciousness Level of Consciousness: Alert Orientation: Yes Intact, Yes Orientated to Time, Yes Orientated to Place, Yes Orientated to Person - Impulse Control Impulse Control: Poor - Insight and Judgement Insight and Judgement: Impaired - Group Participation Particating in Group Activities: No - Medication Management Medication Management Adherence: Yes Assessment - Assessment Merits Inpatient Hospitalization: For Immediate Safety, For Stabilization Inpatient DSM-IV Dx: Unspecified Psychotic DO Clinical Impression: 20 y.o. single, white male with a history of habitual cannabis and remote hallucinogen abuse presented with psychotic symptoms of paranoia and HI directed at his brother. Plan - Plan Treatment Plan: Name: MERCED RANGEL Birthdate: 1995 [id number] The patient remains paranoid although his adherence is improving. He is currently prescribed a trial of quetiapine 200mg PO qhs and citalopram 10mg PO qday. Will increase quetiapine to 250mg PO qhs. Patient has been converted to involuntary status at this time. Substance abuse rehab following psychiatric stabilization is an option. Continued Medication Management: Start Medication Medications: Current Medications Acetaminophen (Tylenol Tab*) 650 mg PO Q4H PRN PRN Reason: PAIN or TEMP > 101 F Al Hydrox/Mg Hydrox/Simethicone (Maalox Plus*) 30 ml PO Q4H PRN PRN Reason: INDIGESTION Citalopram Hydrobromide (Celexa Tab*) 10 mg PO DAILY [facility] Last Admin: 06/30/16 08:29 Dose: 10 mg Clonazepam (Klonopin Tab(*)) 0.5 mg PO BID PRN PRN Reason: AGITATION/ANXIETY/INSOMNIA Last Admin: 06/24/16 08:35 Dose: 0.5 mg Haloperidol (Haldol Tab*) 5 mg PO Q6H PRN PRN Reason: AGITATION/ANXIETY/INSOMNIA Nicotine (Nicotine Inhaler*) 10 mg INH Q2H PRN PRN Reason: CRAVING Quetiapine Fumarate (Seroquel Tab*) 250 mg PO 2100 [facility] - Discharge Plan Discharge Plan: Inpatient Hospitalization
--- NOTE | 2016-06-30 11:28 | PN ---
MHU: Group Therapy Note - Service Type Service Type: [id number] Group Psychotherapy - CBT programming: Drew expressed concern about further communication with his parents, as he feels conversation with them has lead to his continuing hospitalization. He engaged earnestly and thoughtfully in discussion of clinical progress and increased awareness of symptoms, and expressed an interest in attaining discharge. He presented with fair affect that was appropriately variable with discussion.
[2016-06-30] MEDS ORDERED: QUEtiapine TAB* 100 MG PO SCH (21:00)
[2016-07-01] MEDS: Citalopram TAB* 10 MG PO SCH (08:54)
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
[2016-07-01] MEDS: QUEtiapine TAB* 300 MG PO SCH (20:23)
[2016-07-02] MEDS: Citalopram TAB* 10 MG PO SCH (08:38)
[2016-07-02] MEDS: QUEtiapine TAB* 300 MG PO SCH (21:10)
[2016-07-03] MEDS: Citalopram TAB* 10 MG PO SCH (09:49)
[2016-07-03] MEDS: QUEtiapine TAB* 300 MG PO SCH (21:18)
[2016-07-04] MEDS: Citalopram TAB* 10 MG PO SCH (08:58)
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
[2016-07-04] MEDS: QUEtiapine TAB* 300 MG PO SCH (20:37)
[2016-07-05] MEDS: Citalopram TAB* 10 MG PO SCH (09:28)
--- NOTE | 2016-07-05 12:17 | PN ---
Subjective - Subjective Service Type: [id number] Hosp care 15 min low complexity Subjective: The patient seems less paranoid today although he is going back and forth with the treatment team about whether he will agree to go to rehab after discharge. His parents report that he remained paranoid with them over the weekend. The patient denies SI, HI, AH or VH. Objective - Appearance Appearance: Well Developed/Nourished Dysmorphic Features: No Hygiene: Normal Grooming: Fairly Well Kept - Behavior Psychomotor Activities: Normal Exhibits Abnormal Movement: No - Attitude and Relatedness Attitude and Relatedness: Cooperative Eye Contact: Fair - Speech Quality: Unpressured Latencies: Normal Quantity: Appropriate - Mood Patient's Decription of Mood: "Okay" - Affect Observed Affect: Unvariable Affect Consistent with: Euthymia - Thought Process Patient's Thought Process: Circumstantial Thought Content: Yes Paranoid Ideation, No Passive Wish, No Suicidal Planning, No Homicidal Ideation - Sensorium Experiencing Hallucinations: No, Sensorium is Clear Type of Hallucinations: Visual: No, Auditory: No, Command: No - Level of Consciousness Level of Consciousness: Alert Orientation: Yes Intact, Yes Orientated to Time, Yes Orientated to Place, Yes Orientated to Person - Impulse Control Impulse Control: Tenuous - Insight and Judgement Insight and Judgement: Fair - Group Participation Particating in Group Activities: No - Medication Management Medication Management Adherence: Yes Assessment - Assessment Merits Inpatient Hospitalization: For Immediate Safety, For Stabilization Inpatient DSM-IV Dx: Unspecified Psychotic DO Clinical Impression: 20 y.o. single, white male with a history of habitual cannabis and remote hallucinogen abuse presented with psychotic symptoms of paranoia and HI directed at his brother. Plan - Plan Treatment Plan: Name: MERCED RANGEL Birthdate: 1995 [id number] The patient's paranoia was on display over the weekend but seems reduced so far this week. He is currently prescribed a trial of quetiapine 300mg PO qhs and citalopram 10mg PO qday. Substance abuse rehab following psychiatric stabilization is an option. Family is coming tomorrow at 10:15 for a meeting. Continued Medication Management: Start Medication Medications: Current Medications Acetaminophen (Tylenol Tab*) 650 mg PO Q4H PRN PRN Reason: PAIN or TEMP > 101 F Al Hydrox/Mg Hydrox/Simethicone (Maalox Plus*) 30 ml PO Q4H PRN PRN Reason: INDIGESTION Citalopram Hydrobromide (Celexa Tab*) 10 mg PO DAILY [facility] Last Admin: 07/05/16 09:28 Dose: 10 mg Clonazepam (Klonopin Tab(*)) 0.5 mg PO BID PRN PRN Reason: AGITATION/ANXIETY/INSOMNIA Last Admin: 06/24/16 08:35 Dose: 0.5 mg Haloperidol (Haldol Tab*) 5 mg PO Q6H PRN PRN Reason: AGITATION/ANXIETY/INSOMNIA Nicotine (Nicotine Inhaler*) 10 mg INH Q2H PRN PRN Reason: CRAVING Quetiapine Fumarate (Seroquel Tab*) 300 mg PO 2100 [facility] Last Admin: 07/04/16 20:37 Dose: 300 mg - Discharge Plan Discharge Plan: Inpatient Hospitalization
[2016-07-05] MEDS: QUEtiapine TAB* 300 MG PO SCH (20:20)
[2016-07-06] MEDS: Citalopram TAB* 10 MG PO SCH (09:54)
--- NOTE | 2016-07-06 13:12 | PN ---
Subjective - Subjective Service Type: [id number] [facility] Subjective: We had a family meeting today attended by his father, Nathaniel, his mother, Lida, and SW Karin Conroy. The patient was calm and cooperative with his parents, although he could occasionally flash signs of irritability, particularly at his mother. There was no overt evidence of paranoia, although he did admit to a recent thought on the unit that one of his male peers was subtly imitating his movements. The patient is agreeable with inpatient drug rehab placement and his parents are very supportive. They are willing to welcome him back into their home, provided that he stay off drugs, follow up with indicated mental health and substance abuse treatment appointments and stay on psychiatric medications. The patient denies thoughts of violence or SI. Objective - Appearance Appearance: Well Developed/Nourished Dysmorphic Features: No Hygiene: Normal Grooming: Fairly Well Kept - Behavior Psychomotor Activities: Normal Exhibits Abnormal Movement: No - Attitude and Relatedness Attitude and Relatedness: Cooperative Eye Contact: Fair - Speech Quality: Unpressured Latencies: Normal Quantity: Appropriate - Mood Patient's Decription of Mood: "Fine" - Affect Observed Affect: Constricted Affect Consistent with: Dysphoria - Thought Process Patient's Thought Process: Circumstantial Thought Content: Yes Paranoid Ideation, No Passive Wish, No Suicidal Planning, No Homicidal Ideation - Sensorium Experiencing Hallucinations: No, Sensorium is Clear Type of Hallucinations: Visual: No, Auditory: No, Command: No - Level of Consciousness Level of Consciousness: Alert Orientation: Yes Intact, Yes Orientated to Time, Yes Orientated to Place, Yes Orientated to Person - Impulse Control Impulse Control: Tenuous - Insight and Judgement Insight and Judgement: Fair - Group Participation Particating in Group Activities: Yes - Medication Management Medication Management Adherence: Yes Assessment - Assessment Merits Inpatient Hospitalization: Consolidate Improvements, For Discharge Planning Inpatient DSM-IV Dx: Unspecified Psychotic DO Clinical Impression: 20 y.o. single, white male with a history of habitual cannabis and remote hallucinogen abuse presented with psychotic symptoms of paranoia and HI directed at his brother. Plan - Plan Treatment Plan: Name: MERCED RANGEL Birthdate: 1995 [id number] The patient's paranoia appears to be improving. He is currently prescribed a trial of quetiapine 300mg PO qhs and citalopram 10mg PO qday. Substance abuse rehab following psychiatric stabilization is necessary and referrals are pending. Continued Medication Management: Start Medication Medications: Current Medications Acetaminophen (Tylenol Tab*) 650 mg PO Q4H PRN PRN Reason: PAIN or TEMP > 101 F Al Hydrox/Mg Hydrox/Simethicone (Maalox Plus*) 30 ml PO Q4H PRN PRN Reason: INDIGESTION Citalopram Hydrobromide (Celexa Tab*) 10 mg PO DAILY [facility] Last Admin: 07/06/16 09:54 Dose: 10 mg Clonazepam (Klonopin Tab(*)) 0.5 mg PO BID PRN PRN Reason: AGITATION/ANXIETY/INSOMNIA Last Admin: 06/24/16 08:35 Dose: 0.5 mg Haloperidol (Haldol Tab*) 5 mg PO Q6H PRN PRN Reason: AGITATION/ANXIETY/INSOMNIA Nicotine (Nicotine Inhaler*) 10 mg INH Q2H PRN PRN Reason: CRAVING Quetiapine Fumarate (Seroquel Tab*) 300 mg PO 2100 [facility] Last Admin: 07/05/16 20:20 Dose: 300 mg - Discharge Plan Discharge Plan: Inpatient Hospitalization
[2016-07-06] MEDS: QUEtiapine TAB* 300 MG PO SCH (21:06)
[2016-07-07] MEDS: Citalopram TAB* 10 MG PO SCH (11:18)
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
[2016-07-07] MEDS: QUEtiapine TAB* 300 MG PO SCH (20:12)
[2016-07-08] MEDS: Citalopram TAB* 10 MG PO SCH (08:27)
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
[2016-07-08] MEDS: QUEtiapine TAB* 300 MG PO SCH (20:17)
[2016-07-09] MEDS: Citalopram TAB* 10 MG PO SCH (09:38)
[2016-07-09] MEDS: QUEtiapine TAB* 300 MG PO SCH (20:06)
[2016-07-10] MEDS: Citalopram TAB* 10 MG PO SCH (09:29)
[2016-07-10] MEDS: QUEtiapine TAB* 300 MG PO SCH (20:54)
[2016-07-11 08:09] VITALS: BP 110/53
[2016-07-11] MEDS: Citalopram TAB* 10 MG PO SCH (09:02)
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
== END 2016-07-11 11:30 | DRG 885 ==
LOC: ED 16:36 → BSU 06-15 02:15
PROVIDERS: ADMIT Psychiatry & Neurology Psychiatry; ATTEND Psychiatry & Neurology Psychiatry
PROC: GZHZZZZ Group Psychotherapy (ICD-10-PCS; principal; 2016-06-15)
DX: F29 Unspecified psychosis not due to a substance or known physiological condition (principal); F20.9 Schizophrenia, unspecified; F32.9 Major depressive disorder, single episode, unspecified; F90.9 Attention-deficit hyperactivity disorder, unspecified type; F41.0 Panic disorder [episodic paroxysmal anxiety]; F15.90 Other stimulant use, unspecified, uncomplicated; Z62.810 Personal history of physical and sexual abuse in childhood; N62 Hypertrophy of breast; F10.10 Alcohol abuse, uncomplicated; F12.959 Cannabis use, unspecified with psychotic disorder, unspecified; F16.90 Hallucinogen use, unspecified, uncomplicated; F41.1 Generalized anxiety disorder; Z81.8 Family history of other mental and behavioral disorders; Z87.820 Personal history of traumatic brain injury
CPT/HCPCS: 36415; 80053; 80061; 80307; 80320; 80329; 81003; 83036; 84443; 85025; 90847; 90853; 99222; 99231; 99232; A9270-GY; G0480

== ENCOUNTER 2016-08-07 22:34 | Inpatient (IN) | payer OTHER ==
--- NOTE | 2016-08-08 00:02 | ED ---
Psychiatric Complaint - HPI Summary HPI Summary: Patient is BIB police for reasons he says he doesn't understand. He says he was home in his room when his brother "who is mentally ill" called the police on him. He says "if he thinks it's so fucking funny then I will call the police on him". He denies SI or HI. He sees a counselor and says nothing is wrong with him. - History Of Current Complaint Chief Complaint: EDMentalHealth Time Seen by Provider: 08/07/16 22:43 Hx Obtained From: Patient Onset/Duration: Gradual Onset Severity Initially: Severe Severity Currently: Severe Character: Angry Aggravating Factor(s): Nothing Alleviating Factor(s): Nothing Associated Signs And Symptoms: Positive: Hostile Related History: Positive For: Prior Psychiatric Issues - Allergies/Home Medications Allergies/Adverse Reactions: Allergies Allergy/AdvReac Type Severity Reaction Status Date / Time No Known Allergies Allergy Verified 08/07/16 22:41 PMH/Surg Hx/FS Hx/Imm Hx Psychiatric History: Reports: Hx Anxiety, Hx Attention Deficit Hyperactivity Disorder, Hx Depression, Hx Panic Disorder, Hx Inpatient Treatment, Hx Community Mental Health Tx, Hx of Violent Episodes Against Others, Hx Substance Abuse, Other Psychiatric Issues/Disorders - brother has schizophrenia Denies: Hx Eating Disorder, Hx Post Traumatic Stress Disorder, Hx Schizophrenia, Hx Bipolar Disorder, Hx Suicide Attempt Infectious Disease History: No Infectious Disease History: Denies: Traveled Outside the [place] in Last 30 Days - Family History Known Family History: Positive: Other - schizophrenia, bipolar - Social History Occupation: Unemployed Lives: With Family Alcohol Use: Occasionally Hx Substance Use: Yes - mushrooms, was prescribed adderall but made him anxious Substance Use Type: Reports: Marijuana Substance Use Comment - Amount & Last Used: adderal, lionsmane mushrooms Hx Tobacco Use: No Smoking Status (MU): Never Smoked Tobacco Review of Systems Positive: Other - angry All Other Systems Reviewed And Are Negative: Yes Physical Exam Triage Information Reviewed: Yes Vital Signs On Initial Exam: Initial Vitals Temp Pulse Resp BP Pulse Ox 98.0 F 106 15 151/88 99 08/07/16 22:38 08/07/16 22:38 08/07/16 22:38 08/07/16 22:38 08/07/16 22:38 Vital Signs Reviewed: Yes Appearance: Positive: Well-Appearing, No Pain Distress, Obese Skin: Positive: Warm, Skin Color Reflects Adequate Perfusion, Dry, Soft Head/Face: Positive: Normal Head/Face Inspection Eyes: Positive: EOMI, SHELL, Conjunctiva Clear ENT: Positive: Hearing grossly normal Respiratory/Lung Sounds: Positive: Clear to Auscultation, Breath Sounds Present Cardiovascular: Positive: Tachycardia Abdomen Description: Positive: Nontender, Soft. Negative: CVA Tenderness (R), CVA Tenderness (L), Distended, Guarding Bowel Sounds: Positive: Present Musculoskeletal: Negative: Edema Left, Edema Right Neurological: Positive: Sensory/Motor Intact, Alert, Oriented to Person Place, Time, NV Bundle Intact Distally, Normal Gait Psychiatric: Positive: Other - patient appears visibly angry with arms crossed. He gives one word answers. AVPU Assessment: Alert Diagnostics - Vital Signs Vital Signs Temp Pulse Resp BP Pulse Ox 08/07/16 22:38 98.0 F 106 15 151/88 99 - Laboratory Result Diagrams: 08/07/16 23:09 08/07/16 23:09 Lab Statement: Any lab studies that have been ordered have been reviewed, and results considered in the medical decision making process. Course/Dx - Differential Dx/Clinical Impression Differential Diagnosis/HQI/PQRI: Positive: Acute Psychosis, Alcohol Intoxication , Anxiety, Bipolar Disorder, Depression, Homicidal Ideation, Schizophrenia, Suicidal Ideation Provider Diagnosis: Persistent mood [affective] disorder, unspecified, Suicidal ideation - Physician Notifications Patient Is Medically Stable For: Psych Evaluation Discharge - Discharge Plan Condition: Stable Disposition: PSYCHIATRIC FACILITY-[facility] [place]
[2016-08-08 00:48] LABS: Add Diff/Slide Review? Slide Review Added; Comments Flag Yes; Hematocrit 46 % (42-52); Hemoglobin 15.5 g/dl (14.0-18.0); Mean Corpuscular HGB Conc 34 g/dl (31-36); Mean Corpuscular Hemoglobin 29 pg (27-31); Mean Corpuscular Volume 85 fL (80-94); Red Cell Distribution Width 13 % (10.5-15); White Blood Count 9.5 10^3/ul (3.5-10.8)
[2016-08-08 00:59] LABS: ALT 20 U/L (7-52); AST 17 U/L (13-39); Albumin 4.5 g/dL (3.2-5.2); Alkaline Phosphatase 101 U/L (34-104); Anion Gap 7 mmol/L (2-11); BUN/Creatinine Ratio 16.3 (8-20); Blood Urea Nitrogen 13 mg/dL (6-24); CO2 Carbon Dioxide 26 mmol/L (22-32); Calcium 9.6 mg/dL (8.6-10.3); Chloride 104 mmol/L (101-111); EGFR African American 155.5 (>60); EGFR Non-African American 120.9 (>60); Globulin 2.6 g/dL (2-4); Glucose 112 mg/dL (70-100); Potassium 3.6 mmol/L (3.5-5.0); Sodium 137 mmol/L (133-145); Total Protein 7.1 g/dL (6.4-8.9)
[2016-08-08 01:00] LABS: Acetaminophen < 15 mcg/mL; Alcohol < 10 mg/dL (<10); Salicylate < 2.50 mg/dL (<30)
[2016-08-08 01:11] LABS: Mean Platelet Volume 14 um3 (7.4-10.4)
[2016-08-08 02:00] LABS: TSH (Thyroid Stimulating Horm) 1.48 mcIU/mL (0.34-5.60)
[2016-08-08] MEDS ORDERED: LORazepam TAB(*) 1 MG ONE (05:16)
[2016-08-08] MEDS ORDERED: LORazepam TAB(*) 1 MG PO ONE (05:24)
[2016-08-08 05:29] LABS: Urine Bilirubin Negative (Negative); Urine Glucose Negative (Negative); Urine Nitrite Negative (Negative)
[2016-08-08 05:41] LABS: Benzodiazepine Urine Screen None Detected (None Detect)
[2016-08-08] MEDS ORDERED: Nicotine Inhaler* 10 MG AMP INH PRN (10:41)
[2016-08-08] MEDS ORDERED: QUEtiapine TAB* 300 MG PO SCH (21:00)
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
[2016-08-09] MEDS: QUEtiapine XR TAB* 300 MG PO SCH (21:29)
[2016-08-10] MEDS: QUEtiapine XR TAB* 300 MG PO SCH (20:21)
--- NOTE | 2016-08-11 08:47 | PN ---
Subjective - Subjective Subjective: LATE ENTRY FOR 08/10 My error in rounding resulted in not having face to face meeting with Merced , but I reviewed his case with RN, ELMER and other staff in treatment team. Merced was settling into the unit, at low overt distress levels, safe on checks, adherent with basic routines, but withdrawn. Collateral information from family was that there had been enough safety concern to justify putting a special lock on Merced's brother's door for protection. Assessment - Assessment Merits Inpatient Hospitalization: For Immediate Safety, For Stabilization, To Initiate Treatment, For Ongoing Evaluation, For Discharge Planning Inpatient DSM-IV Dx: 1. Psychotic disorder, not otherwise specified. 2. Cannabis use disorder. 3. Rule out substance induced psychotic disorder. 3. Rule out Schizophrenia Clinical Impression: 20-year-old male with a history of psychosis, periodic violent ideation, suicidal ideation, substance use disorder, and previous psychiatric hospitalization. He presented emergently with police due to concern over talk of killing himself and his brother. This is apparently in the setting of nonadherence with outpatient treatment and also possibly in the setting of ongoing cannabis use. Settling into the unit. Safe on checks, adherent with routines, but not engaged clinically. Medication management changes Seroquel to XR formula, and is a partial re- challenge based on incomplete adherence. Merced is markedly dysphoric on this episode, suggesting possible post- psychotic depression, or adjustment features with new diagnosis. Plan - Plan Treatment Plan: Name: MERCED RANGEL Birthdate: 1995 [id number] Continued Medication Management: Different Medication Medications: Current Medications Nicotine (Nicotine Inhaler*) 10 mg INH Q2H PRN PRN Reason: CRAVING Quetiapine Fumarate (Seroquel Xr Tab*) 300 mg PO 1999 [facility] Last Admin: 08/10/16 20:21 Dose: 300 mg - Discharge Plan Discharge Plan: Outpatient Follow Up
--- NOTE | 2016-08-11 09:08 | PN ---
Subjective - Subjective Service Type: 39161 Hosp care 15 min low complexity Subjective: Merced said he is "still ruminating a lot" on his brother. He denies plans to hurt himself or anyone else. He reports still reacting to being diagnosed with a psychotic condition, adjusting to "having a brain problem" and feels down and self critical. He said Seroquel XR is much easier than IR version to take, but still sedating, and he declined to increase the dose after I again said psychotic disorder reference ranges are higher and recommended. He was unhappy with being in the hospital, somewhat dismissive of the safety concerns people have had, and advocating for brief stay. Objective - Appearance Appearance: Obese Hygiene: Normal Grooming: Fairly Well Kept - Behavior Psychomotor Activities: Abnormal-Decreased - Attitude and Relatedness Attitude and Relatedness: Guarded Eye Contact: Fair - Speech Quality: Unpressured Latencies: Long Quantity: Appropriate - Mood Patient's Decription of Mood: "Sad" - Affect Observed Affect: Constricted Affect Consistent with: Dysphoria - Thought Process Patient's Thought Process: Impoverished Thought Content: No Passive Wish, No Suicidal Planning, No Homicidal Ideation, No Paranoid Ideation - Sensorium Experiencing Hallucinations: No, Sensorium is Clear - Level of Consciousness Level of Consciousness: Alert - Impulse Control Impulse Control: Intact - Insight and Judgement Insight and Judgement: Poor Assessment - Assessment Merits Inpatient Hospitalization: For Immediate Safety, For Stabilization, To Initiate Treatment, For Ongoing Evaluation, For Discharge Planning Inpatient DSM-IV Dx: 1. Psychotic disorder, not otherwise specified. 2. Cannabis use disorder. 3. Rule out substance induced psychotic disorder. 3. Rule out Schizophrenia Clinical Impression: 20-year-old male with a history of psychosis, periodic violent ideation, suicidal ideation, substance use disorder, and previous psychiatric hospitalization. He presented emergently with police due to concern over talk of killing himself and his brother. This is apparently in the setting of nonadherence with outpatient treatment and also possibly in the setting of ongoing cannabis use. Stable behaviorally. Safe on checks, adherent with routines, but not actively engaged clinically. Medication management changes Seroquel to XR formula, and is a partial re- challenge based on incomplete adherence. Optimally he would be taking higher doses, but is reluctant to advance it. Merced is markedly dysphoric on this episode, suggesting possible post- psychotic depression, or adjustment features with new diagnosis. Plan - Plan Treatment Plan: Name: MERCED RANGEL Birthdate: 1995 [id number] Continued Medication Management: Different Medication Medications: Current Medications Nicotine (Nicotine Inhaler*) 10 mg INH Q2H PRN PRN Reason: CRAVING Quetiapine Fumarate (Seroquel Xr Tab*) 300 mg PO 1999 [facility] Last Admin: 08/10/16 20:21 Dose: 300 mg - Discharge Plan Discharge Plan: Outpatient Follow Up
[2016-08-11] MEDS: QUEtiapine XR TAB* 300 MG PO SCH (20:32)
--- NOTE | 2016-08-12 18:05 | PN ---
Subjective - Subjective Service Type: 11691 Hosp care 15 min low complexity - Patient does not want to take Seroquel XR and thinks he is here wrongfully. He feels sedated and depressed. Objective - Appearance Appearance: Well Developed/Nourished Dysmorphic Features: No Hygiene: Normal Grooming: Well Kept - Behavior Psychomotor Activities: Normal Exhibits Abnormal Movement: No - Attitude and Relatedness Attitude and Relatedness: Dismissive Eye Contact: Fair - Speech Quality: Unpressured Latencies: Normal Quantity: Appropriate - Mood Patient's Decription of Mood: "Angry" - Affect Observed Affect: Constricted Affect Consistent with: Dysphoria - Thought Process Patient's Thought Process: Disorganized Thought Content: No Passive Wish, No Suicidal Planning, No Homicidal Ideation, No Paranoid Ideation - Sensorium Experiencing Hallucinations: No, Sensorium is Clear Type of Hallucinations: Visual: No, Auditory: No, Command: No - Level of Consciousness Level of Consciousness: Alert Orientation: Yes Intact, Yes Orientated to Time, Yes Orientated to Place - Impulse Control Impulse Control: Impaired - Insight and Judgement Insight and Judgement: Poor - Group Participation Particating in Group Activities: Yes - Medication Management Medication Management Adherence: Partial - likely to become noncompliant Assessment - Assessment Merits Inpatient Hospitalization: For Immediate Safety, For Stabilization Inpatient DSM-IV Dx: 1. Psychotic disorder, not otherwise specified. 2. Cannabis use disorder. 3. Rule out substance induced psychotic disorder. 3. Rule out Schizophrenia Clinical Impression: He approached me requesting a session because I am his outpatient psychiatrist. He says that he blurted out suicidal thoughts due to drinking alcohol and using marijuana and that he feels that Seroquel XR makes him sleep all day. However, he does not want Seroquel either. He has little interest in complying with full dose antipsychotics, refusing doses of seroquel over 300 mg as an outpatient and refusing to consider a switch. He is a good candidate for abilinoy magaña (he told me at [facility] that he took abilify in the past) and is a good candidate for the [facility] ACT team. Plan - Plan Treatment Plan: Name: MERCED RANGEL Birthdate: 1995 [id number] Medications: Current Medications Nicotine (Nicotine Inhaler*) 10 mg INH Q2H PRN PRN Reason: CRAVING Quetiapine Fumarate (Seroquel Xr Tab*) 300 mg PO 1999 [facility] Last Admin: 08/11/16 20:32 Dose: 300 mg He complains about medications but refuses to consider switching them. - Discharge Plan Discharge Plan: Outpatient Follow Up Outpatient Program: Consider ACT team
[2016-08-12] MEDS: QUEtiapine XR TAB* 300 MG PO SCH (19:36)
--- NOTE | 2016-08-13 12:00 | PN ---
Subjective - Subjective Subjective: Attempted to visit client X 2- spaced several hours apart. He was in bed both times, did not want to engage in clinical interview. Objective - Appearance Dysmorphic Features: No Grooming: Disheveled Assessment - Assessment Inpatient DSM-IV Dx: 1. Psychotic disorder, not otherwise specified. 2. Cannabis use disorder. 3. Rule out substance induced psychotic disorder. 3. Rule out Schizophrenia Plan - Plan Treatment Plan: Name: MERCED RANGEL Birthdate: 1995 [id number] Medications: Current Medications Nicotine (Nicotine Inhaler*) 10 mg INH Q2H PRN PRN Reason: CRAVING Quetiapine Fumarate (Seroquel Xr Tab*) 300 mg PO 1999 [facility] Last Admin: 08/12/16 19:36 Dose: 300 mg
[2016-08-13] MEDS: QUEtiapine XR TAB* 300 MG PO SCH (20:05)
--- NOTE | 2016-08-14 13:10 | PN ---
Subjective - Subjective Service Type: 75013 Hosp care 15 min low complexity Subjective: Today I attempted to engage client in clinical interview. He briefly awoke, stated that he was tired and fell back to sleep. Nursing staff reports that pt. is awake in the evening hours requesting discharge. Case reviewed with Dr. Houston. Objective - Additional Observations Comments: Unable to complete comprehensive assessment due to pt. refusal to speak with me. Assessment - Assessment Inpatient DSM-IV Dx: 1. Psychotic disorder, not otherwise specified. 2. Cannabis use disorder. 3. Rule out substance induced psychotic disorder. 3. Rule out Schizophrenia Plan - Plan Treatment Plan: Name: MERCED RANGEL Birthdate: 1995 [id number] Medications: Current Medications Nicotine (Nicotine Inhaler*) 10 mg INH Q2H PRN PRN Reason: CRAVING Quetiapine Fumarate (Seroquel Xr Tab*) 300 mg PO 1999 [facility] Last Admin: 08/13/16 20:05 Dose: 300 mg
[2016-08-14] MEDS: QUEtiapine XR TAB* 300 MG PO SCH (20:56)
--- NOTE | 2016-08-15 13:14 | PN ---
Subjective - Subjective Service Type: 36449 Hosp care 15 min low complexity Subjective: The patient is non-participatory on the milieu and is minimizing towards the issues of dangerousness that led to his hospitalization. He has not been allowing his mother to visit and is on tenuous terms with his parents, with whom he lives. He denies SI and HI but continues to direct paranoid statements towards his brother, Chriss. Objective - Appearance Appearance: Obese Dysmorphic Features: No Hygiene: Normal Grooming: Fairly Well Kept - Behavior Psychomotor Activities: Normal Exhibits Abnormal Movement: No - Attitude and Relatedness Attitude and Relatedness: Irritable Eye Contact: Fair - Speech Quality: Unpressured Latencies: Normal Quantity: Terse - Mood Patient's Decription of Mood: "Anxious" - Affect Observed Affect: Tense Affect Consistent with: Dysphoria - Thought Process Patient's Thought Process: Coherent Thought Content: Yes Paranoid Ideation, No Passive Wish, No Suicidal Planning, No Homicidal Ideation - Sensorium Experiencing Hallucinations: No, Sensorium is Clear Type of Hallucinations: Visual: No, Auditory: No, Command: No - Level of Consciousness Level of Consciousness: Alert Orientation: Yes Intact, Yes Orientated to Time, Yes Orientated to Place, Yes Orientated to Person - Impulse Control Impulse Control: Poor - Insight and Judgement Insight and Judgement: Impaired - Group Participation Particating in Group Activities: No - Medication Management Medication Management Adherence: Yes Assessment - Assessment Merits Inpatient Hospitalization: For Immediate Safety, For Stabilization Inpatient DSM-IV Dx: 1. Psychotic disorder, not otherwise specified. 2. Cannabis use disorder. 3. Rule out substance induced psychotic disorder. 3. Rule out Schizophrenia Clinical Impression: 20 y.o. single, white male with a history of recurrent psychotic episodes admitted to the [facility] after making suicidal and homicidal statements to his family at home. Plan - Plan Treatment Plan: Name: MERCED RANGEL Birthdate: 1995 [id number] We will increase quetiapine XR to 400mg PO qhs and ask for a family meeting with his parents tomorrow. Continued Medication Management: Different Medication Medications: Current Medications Nicotine (Nicotine Inhaler*) 10 mg INH Q2H PRN PRN Reason: CRAVING Quetiapine Fumarate (Seroquel Xr Tab*) 400 mg PO 1999 [facility] - Discharge Plan Discharge Plan: Inpatient Hospitalization
--- NOTE | 2016-08-15 14:03 | PN ---
[facility]: Group Therapy Note - Service Type Service Type: 90071 Group Psychotherapy - Cognitive Behavioral Group Therapy ( CBT):Patient attended CBT programming this morning and presented with flat affect that did not vary with discussion. Although responsive to direct prompts to respond to questions, patient did not engage in spontaneous conversation.
[2016-08-15] MEDS: QUEtiapine XR TAB* 200 MG PO SCH (20:43)
--- NOTE | 2016-08-16 11:34 | PN ---
Subjective - Subjective Service Type: 49717 Hosp care 15 min low complexity Subjective: The patient is seen for family meeting along with his father, Nathaniel, and ELMER Frazier. He is sluggish today and appears moping and unenthusiastic. "I can already tell you're not going to discharge me today." The patient continues to deny SI or HI. He does not appear overtly paranoid but still endorses perseverative thoughts that his brother Chriss wronged him by hacking into his smart phone. "I'm not going to hurt him or anyone. I just want to stay away from him." He is given the opportunity to describe his aftercare plan and he agrees to follow up with Dr. Boland. He also expresses interest in switching therapists at [facility] from a nurse to an BUSINESS PROFESSOR. Father is willing to take him home, provided he continues to take his medications and remain nonviolent. Objective - Appearance Appearance: Well Developed/Nourished Dysmorphic Features: No Hygiene: Normal Grooming: Fairly Well Kept - Behavior Psychomotor Activities: Abnormal-Decreased Exhibits Abnormal Movement: No - Attitude and Relatedness Attitude and Relatedness: Withdrawn Eye Contact: Fair - Speech Quality: Unpressured Latencies: Normal Quantity: Terse - Mood Patient's Decription of Mood: "Fine" - Affect Observed Affect: Constricted Affect Consistent with: Euthymia - Thought Process Patient's Thought Process: Coherent Thought Content: No Passive Wish, No Suicidal Planning, No Homicidal Ideation, No Paranoid Ideation - Sensorium Experiencing Hallucinations: No, Sensorium is Clear Type of Hallucinations: Visual: No, Auditory: No, Command: No - Level of Consciousness Level of Consciousness: Lethargic Orientation: Yes Intact, Yes Orientated to Time, Yes Orientated to Place, Yes Orientated to Person - Impulse Control Impulse Control: Tenuous - Insight and Judgement Insight and Judgement: Fair - Group Participation Particating in Group Activities: No - Medication Management Medication Management Adherence: Yes Assessment - Assessment Merits Inpatient Hospitalization: Consolidate Improvements, Pending Safe DC Plan Inpatient DSM-IV Dx: 1. Psychotic disorder, not otherwise specified. 2. Cannabis use disorder. 3. Rule out substance induced psychotic disorder. 3. Rule out Schizophrenia Clinical Impression: 20 y.o. single, white male with a history of recurrent psychotic episodes admitted to the [facility] after making suicidal and homicidal statements to his family at home. Plan - Plan Treatment Plan: Name: MERCED RANGEL Birthdate: 1995 [id number] The patient has certainly improved over admission but he seems slightly oversedated on quetiapine XR 400mg PO qhs. Consider d/c tomorrow (08/17). Continued Medication Management: Different Medication Medications: Current Medications Nicotine (Nicotine Inhaler*) 10 mg INH Q2H PRN PRN Reason: CRAVING Quetiapine Fumarate (Seroquel Xr Tab*) 400 mg PO 1999 [facility] Last Admin: 08/15/16 20:43 Dose: 400 mg - Discharge Plan Discharge Plan: Outpatient Follow Up Outpatient Program: Debbie Lozano [facility]
[2016-08-16] MEDS: QUEtiapine XR TAB* 200 MG PO SCH (20:17)
[2016-08-17 08:55] VITALS: BP 106/52
--- NOTE | 2016-08-18 04:11 | DS ---
DISCHARGE SUMMARY: DATE OF ADMISSION: 08/08/16 DATE OF DISCHARGE: 08/17/16 DISCHARGE DIAGNOSES: As follows: [place] I: Schizophrenia, cannabis use disorder. [place] II: Deferred. [place] III: Obesity. [place] IV: Severe primary support stressors. [place] V: At the time of admission was 35 and at the time of discharge is 60. CONDITION AT THE TIME OF DISCHARGE: Improved. The patient is denying any suicidal or homicidal ideations. He is less fixated on his brother for whom he was expressing paranoid delusions at the time of admission. We have had a family meeting with both the patient and his father and family feels safe having him come home. In fact, they are in agreement with the discharge plan and are arriving this afternoon to take him back to their house. A safety plan has been put in place for outpatient followup, wherein he will be following up with his therapist who will be Chriss Rubin at [facility] and Psychiatrist Christopher De Santiago MD, also at [facility]. The patient steadfastly denies any thoughts of hurting himself or others. He is tolerating his change in medications quite well and is agreeable with the plan for further care in the outpatient setting. MENTAL STATUS EXAM: At the time of discharge, the patient is an overweight young white male who is clean and well groomed. He is calm, cooperative, and makes good eye contact. Speech is slow and somewhat monotonous, but he uses fluent Iranian. Mood is euthymic with a full affect. Thought process is linear and goal-directed. Thought content is significant for his desire to be discharged from the hospital and return to live with his family. He denies suicidal or homicidal ideations. He denies auditory or visual hallucinations. Insight and judgment is fair given his willingness to follow up with outpatient services in the community. Cognitively, he is awake and alert with what appear to be an average intellect. DISCHARGE INSTRUCTIONS: To the patient are as follows: A. Medications: He is taking Seroquel XR 400 mg p.o. at bedtime. B. Diet: Regular. C. Activities: As tolerated. The patient is encouraged to discontinue tobacco products; however, he is declining the offer of continued nicotine replacement therapy on an outpatient basis indicating his preference to continue smoking cigarettes at this time. There are no studies pending at the time of discharge. D. Followup care: The patient is to follow up with the [facility]. He has been referred to a new therapist there whose name is Chriss Rubin and he is also to follow up with psychiatrist, Dr. Christopher De Santiago, and that appointment is established for tomorrow, which is 08/18/16. HOSPITAL COURSE: As follows: Part A: Reason for admission: The patient is a 20-year-old single white male with a history of psychosis and cannabis abuse who was recently discharged from our facility in May 2016 who now returns after his brother called the police when his brother overheard their parents discussing that the patient had made homicidal statements towards an older brother. Apparently, when the patient was recently discharged, he was sent as a direct transfer to the [facility] in [facility]. There, he only stayed for 4 days before signing himself out, stating that their programing was inappropriate for him. Upon his return home, he discontinued citalopram stating that he felt that it was making him worse. Gradually, he self- discontinued his Seroquel indicating that this also was not tolerated well. He states that on one day, he wanted to stimulate himself, so he drank several energy drinks and then in an effort to fall asleep at night, he took several Seroquel tablets. It is notable that he had made statements to the effect that he was potentially homicidal towards his older brother, Chriss. While his parents were discussing this in their kitchen, these statements were overheard by his younger brother, whose name is Trevor. [place] became greatly concerned and called the police who showed up at house. The history was then corroborated by the parents and the patient was therefore taken to the hospital. He did endorse some paranoid thoughts and did admit to the homicidal statements, although he denied any formal thoughts of hurting his brother or himself. Furthermore, it was stated by his mother that he had made a suicidal statement to her during a walk, but the patient indicates this was taken out of context and denied this as well. Part B: Psychiatric treatment rendered: The patient was [facility]. He was adamantly opposed to the idea of taking Seroquel; however, when we discussed the potential for Seroquel XR, he readily agreed to this and was placed on 300 mg dose. Ultimately, this was increased to the dose of 400 mg nightly. He was minimally participant in milieu activities and mostly isolated to himself, but we did see a marked reduction in his agitation and he stopped perseverating about his older brother , Chriss. He continued to deny both suicidal and homicidal ideations and his visits with his family became much more collaborative and agreeable. Ultimately , we were able to hold a family meeting with his father on 08/16/16. At which time, it was determined that the family felt that he was safe and back to his baseline and they were agreeable to accepting him home. We did have some concerns of oversedation at the dose of 400 mg of Seroquel, but this appeared to be improving. On the , he continues to deny any thoughts of hurting anyone and we feel that he is safe enough to receive treatment in a less restrictive setting. For this reason, we are discharging Mr. Drew Barber and he is to follow up starting tomorrow at [facility]. [id number] #: [id number] MTDD
== END 2016-08-17 12:30 | disposition home or self-care (01) | DRG 885 ==
LOC: ED 22:34 → BSU 08-08 10:41
PROVIDERS: ADMIT Psychiatry & Neurology Psychiatry; ATTEND Psychiatry & Neurology Psychiatry
PROC: GZHZZZZ Group Psychotherapy (ICD-10-PCS; principal; 2016-08-15)
DX: F20.9 Schizophrenia, unspecified (principal); D69.6 Thrombocytopenia, unspecified; E66.9 Obesity, unspecified; F12.10 Cannabis abuse, uncomplicated; F41.0 Panic disorder [episodic paroxysmal anxiety]; F32.9 Major depressive disorder, single episode, unspecified; F90.9 Attention-deficit hyperactivity disorder, unspecified type; Z68.31 Body mass index [BMI] 31.0-31.9, adult; Z87.820 Personal history of traumatic brain injury; Z91.14 Patient's other noncompliance with medication regimen; Z81.8 Family history of other mental and behavioral disorders; Z56.0 Unemployment, unspecified
CPT/HCPCS: 36415; 80053; 80307; 80320; 80329; 81003; 84443; 85025; 90853; 99222; 99231; 99238; A9270-GY; G0480

== ENCOUNTER 2017-04-09 18:51 | Inpatient (IN) | payer OTHER, MEDICAID ==
[2017-04-09 20:12] LABS: Hematocrit 49 % (42-52); Mean Corpuscular HGB Conc 35 g/dl (31-36); Mean Corpuscular Hemoglobin 29 pg (27-31); Mean Corpuscular Volume 84 fL (80-94); Mean Platelet Volume 14 um3 (7.4-10.4); Red Blood Count 5.88 10^6/ul (4.0-5.4); Red Cell Distribution Width 13 % (10.5-15)
[2017-04-09 20:23] LABS: ALT 30 U/L (7-52); AST 20 U/L (13-39); Albumin 4.8 g/dL (3.2-5.2); Alkaline Phosphatase 91 U/L (34-104); Anion Gap 10 mmol/L (2-11); Blood Urea Nitrogen 15 mg/dL (6-24); CO2 Carbon Dioxide 24 mmol/L (22-32); Calcium 9.9 mg/dL (8.6-10.3); Chloride 102 mmol/L (101-111); EGFR African American 101.4 (>60); EGFR Non-African American 78.8 (>60); Globulin 3.1 g/dL (2-4); Glucose 122 mg/dL (70-100); Potassium 3.6 mmol/L (3.5-5.0); Sodium 136 mmol/L (133-145); Total Protein 7.9 g/dL (6.4-8.9)
[2017-04-09 20:24] LABS: Benzodiazepine Urine Screen None Detected (None Detect)
[2017-04-09 20:27] LABS: Urine Bacteria Absent (Absent); Urine Bilirubin Negative (Negative); Urine Glucose Negative (Negative); Urine Nitrite Negative (Negative)
[2017-04-09 20:38] LABS: Acetaminophen < 15 mcg/mL; Alcohol < 10 mg/dL (<10); Salicylate < 2.50 mg/dL (<30)
[2017-04-09 20:53] LABS: TSH (Thyroid Stimulating Horm) 1.66 mcIU/mL (0.34-5.60)
--- NOTE | 2017-04-10 02:03 | ED ---
Davon Alvarez Tiffany, scribed for Parish Helton on 04/09/17 at 1923 . Psychiatric Complaint - HPI Summary HPI Summary: This patient is a 21 year old M [facility] accompanied by mother with a concern of smoking a cigarette laced with chemicals eight days ago. The patient reports that he was offered a cigarette by someone who doesnt like him. He has been feeling spacey and weird for the past week. Symptoms aggravated by nothing. Symptoms alleviated by nothing. Patient reports decreased appetite, paranoia, and insomnia. Patient denies suicidal and homicidal ideations. The patient requests a review of systems. He has a history of schizophrenia. - History Of Current Complaint Chief Complaint: EDMentalHealth Time Seen by Provider: 04/09/17 19:10 Hx Obtained From: Patient Onset/Duration: Lasting Days - 8 days, Still Present Aggravating Factor(s): Nothing Alleviating Factor(s): Nothing Associated Signs And Symptoms: Positive: Negative - Suicidal ideation and homicidal ideation, Sleep Disturbance, Appetite Change Has Suicidal: Denies: Thoughts, With A Plan Has Homicidal: Denies: Thoughts, With A Plan - Allergies/Home Medications Allergies/Adverse Reactions: Allergies Allergy/AdvReac Type Severity Reaction Status Date / Time No Known Allergies Allergy Verified 04/09/17 19:09 PMH/Surg Hx/FS Hx/Imm Hx Previously Healthy: No Sensory History: Denies: Hx Contacts or Glasses, Hx Hearing Aid Opthamlomology History: Denies: Hx Contacts or Glasses Psychiatric History: Reports: Hx Anxiety, Hx Attention Deficit Hyperactivity Disorder, Hx Depression, Hx Panic Disorder, Hx Inpatient Treatment, Hx Community Mental Health Tx, Hx of Violent Episodes Against Others, Hx Substance Abuse, Other Psychiatric Issues/Disorders - brother has schizophrenia Denies: Hx Eating Disorder, Hx Post Traumatic Stress Disorder, Hx Schizophrenia, Hx Bipolar Disorder, Hx Suicide Attempt Infectious Disease History: No Infectious Disease History: Denies: Traveled Outside the [place] in Last 30 Days - Family History Known Family History: Positive: Other - schizophrenia, bipolar - Social History Lives: With Family - With mom Alcohol Use: Occasionally Hx Substance Use: Yes - mushrooms, was prescribed adderall but made him anxious Substance Use Type: Reports: Marijuana Substance Use Comment - Amount & Last Used: adderal, lionsmane mushrooms Hx Tobacco Use: No Smoking Status (MU): Never Smoked Tobacco Review of Systems Positive: Other - Decreased appetite Neurological: Other - Insomnia Positive: Other - Paranoia; NEGATIVE: SI and HI All Other Systems Reviewed And Are Negative: Yes Physical Exam - Summary Physical Exam Summary: Appearance: Well appearing, no pain distress Skin: warm, dry, reflects adequate perfusion Head/face: normal Eyes: EOMI, SHELL ENT: normal Neck: supple, non-tender Respiratory: CTA, breath sounds present Cardiovascular: RRR, pulses symmetrical Abdomen: non-tender, soft Bowel: present Musculoskeletal: normal, strength/ROM intact Neuro: normal, sensory motor intact, A&Ox3 Psych: depressed affect Triage Information Reviewed: Yes Vital Signs On Initial Exam: Initial Vitals Temp Pulse Resp BP Pulse Ox 98.0 F 118 17 144/82 98 04/09/17 19:03 04/09/17 19:03 04/09/17 19:03 04/09/17 19:03 04/09/17 19:03 Vital Signs Reviewed: Yes Diagnostics - Vital Signs Vital Signs Temp Pulse Resp BP Pulse Ox 04/09/17 19:03 98.0 F 118 17 144/82 98 - Laboratory Lab Results: Lab Results 04/09/17 04/09/17 04/09/17 Range/Units 19:52 19:52 19:52 WBC 12.0 H (3.5-10.8) 10^3/ul RBC 5.88 H (4.0-5.4) 10^6/ul Hgb 17.0 (14.0-18.0) g/dl Hct 49 (42-52) % MCV 84 (80-94) fL MCH 29 (27-31) pg MCHC 35 (31-36) g/dl RDW 13 (10.5-15) % Plt Count 154 (150-450) 10^3/ul MPV 14 H (7.4-10.4) um3 Neut % (Auto) 68.0 (38-83) % Lymph % (Auto) 20.3 L (25-47) % [place] % (Auto) 11.2 H (1-9) % Eos % (Auto) 0.2 (0-6) % Baso % (Auto) 0.3 (0-2) % Absolute Neuts (auto) 8.2 H (1.5-7.7) 10^3/ul Absolute Lymphs (auto) 2.4 (1.0-4.8) 10^3/ul Absolute Monos (auto) 1.3 H (0-0.8) 10^3/ul Absolute Eos (auto) 0 (0-0.6) 10^3/ul Absolute Basos (auto) 0 (0-0.2) 10^3/ul Absolute Nucleated RBC 0.02 10^3/ul Nucleated RBC % 0.1 Sodium 136 (133-145) mmol/L Potassium 3.6 (3.5-5.0) mmol/L Chloride 102 (101-111) mmol/L Carbon Dioxide 24 (22-32) mmol/L Anion Gap 10 (2-11) mmol/L BUN 15 (6-24) mg/dL Creatinine 1.15 (0.67-1.17) mg/dL Est GFR ( Amer) 101.4 (>60) Est GFR (Non-Af Amer) 78.8 (>60) BUN/Creatinine Ratio 13.0 (8-20) Glucose 122 H (70-100) mg/dL Calcium 9.9 (8.6-10.3) mg/dL Total Bilirubin 0.80 (0.2-1.0) mg/dL AST 20 (13-39) U/L ALT 30 (7-52) U/L Alkaline Phosphatase 91 (34-104) U/L Total Protein 7.9 (6.4-8.9) g/dL Albumin 4.8 (3.2-5.2) g/dL Globulin 3.1 (2-4) g/dL Albumin/Globulin Ratio 1.5 (1-3) TSH 1.66 (0.34-5.60) mcIU/mL Urine Color Urine Appearance Urine pH (5-9) Ur Specific [place] (1.010-1.030) Urine Protein (Negative) Urine Ketones (Negative) Urine Blood (Negative) Urine Nitrate (Negative) Urine Bilirubin (Negative) Urine Urobilinogen (Negative) Ur Leukocyte Esterase (Negative) Urine WBC (Auto) (Absent) Urine RBC (Auto) (Absent) Urine Bacteria (Absent) Urine Glucose (Negative) Salicylates < 2.50 (<30) mg/dL Urine Opiates Screen None detected (None Detect) Acetaminophen < 15 mcg/mL Ur Barbiturates Screen None detected (None Detect) Ur Phencyclidine Scrn None detected (None Detect) Ur Amphetamines Screen None detected (None Detect) U Benzodiazepines Scrn None detected (None Detect) Urine Cocaine Screen None detected (None Detect) U Cannabinoids Screen Presumptive positive H (None Detect) Serum Alcohol < 10 (<10) mg/dL 04/09/17 Range/Units 19:52 WBC (3.5-10.8) 10^3/ul RBC (4.0-5.4) 10^6/ul Hgb (14.0-18.0) g/dl Hct (42-52) % MCV (80-94) fL MCH (27-31) pg MCHC (31-36) g/dl RDW (10.5-15) % Plt Count (150-450) 10^3/ul MPV (7.4-10.4) um3 Neut % (Auto) (38-83) % Lymph % (Auto) (25-47) % [place] % (Auto) (1-9) % Eos % (Auto) (0-6) % Baso % (Auto) (0-2) % Absolute Neuts (auto) (1.5-7.7) 10^3/ul Absolute Lymphs (auto) (1.0-4.8) 10^3/ul Absolute Monos (auto) (0-0.8) 10^3/ul Absolute Eos (auto) (0-0.6) 10^3/ul Absolute Basos (auto) (0-0.2) 10^3/ul Absolute Nucleated RBC 10^3/ul Nucleated RBC % Sodium (133-145) mmol/L Potassium (3.5-5.0) mmol/L Chloride (101-111) mmol/L Carbon Dioxide (22-32) mmol/L Anion Gap (2-11) mmol/L BUN (6-24) mg/dL Creatinine (0.67-1.17) mg/dL Est GFR ( Amer) (>60) Est GFR (Non-Af Amer) (>60) BUN/Creatinine Ratio (8-20) Glucose (70-100) mg/dL Calcium (8.6-10.3) mg/dL Total Bilirubin (0.2-1.0) mg/dL AST (13-39) U/L ALT (7-52) U/L Alkaline Phosphatase (34-104) U/L Total Protein (6.4-8.9) g/dL Albumin (3.2-5.2) g/dL Globulin (2-4) g/dL Albumin/Globulin Ratio (1-3) TSH (0.34-5.60) mcIU/mL Urine Color [place] Urine Appearance Cloudy Urine pH 5.0 (5-9) Ur Specific [place] 1.031 H (1.010-1.030) Urine Protein 1+(30 mg/dl) H (Negative) Urine Ketones 1+ H (Negative) Urine Blood Negative (Negative) Urine Nitrate Negative (Negative) Urine Bilirubin Negative (Negative) Urine Urobilinogen Negative (Negative) Ur Leukocyte Esterase Negative (Negative) Urine WBC (Auto) Trace(0-5/hpf) (Absent) Urine RBC (Auto) 1+(3-5/hpf) H (Absent) Urine Bacteria Absent (Absent) Urine Glucose Negative (Negative) Salicylates (<30) mg/dL Urine Opiates Screen (None Detect) Acetaminophen mcg/mL Ur Barbiturates Screen (None Detect) Ur Phencyclidine Scrn (None Detect) Ur Amphetamines Screen (None Detect) U Benzodiazepines Scrn (None Detect) Urine Cocaine Screen (None Detect) U Cannabinoids Screen (None Detect) Serum Alcohol (<10) mg/dL Result Diagrams: 04/09/17 19:52 04/09/17 19:52 Lab Statement: Any lab studies that have been ordered have been reviewed, and results considered in the medical decision making process. Course/Dx - Course Course Of Treatment: This patient is a 21 year old M presenting to [facility] accompanied by mother with a concern of smoking a cigarette laced with chemicals eight days ago. He has been feeling spacey and weird for the past week. Bloodwork/UA obtained. Patient will be admitted. The patient is agreeable with this plan. - Differential Dx/Clinical Impression Differential Diagnosis/HQI/PQRI: Positive: Acute Psychosis, Anxiety, Depression , Schizophrenia Provider Diagnosis: Acute psychosis Discharge - Discharge Plan Condition: Good Disposition: ADMITTED TO [facility] documentation as recorded by the Davon navarro Tiffany accurately reflects the service I personally performed and the decisions made by , Parish Helton.
[2017-04-10] MEDS ORDERED: QUEtiapine TAB* 100 MG ONE (03:25)
[2017-04-10] MEDS ORDERED: chlorproMAZINE TAB* 50 MG PO PRN (04:11)
[2017-04-10] MEDS ORDERED: Al Hydrox/Mg Hydrox/Simet LIQ* 30 ML UDC PO PRN (04:11)
[2017-04-10] MEDS ORDERED: Acetaminophen TAB* 325 MG PO PRN (04:11)
[2017-04-10] MEDS ORDERED: diPHENhydraMINE PO* 50 MG PO PRN (04:11)
[2017-04-10] MEDS: Vitamin THERAPEUTIC TAB PO SCH (09:26)
--- NOTE | 2017-04-10 11:27 | ADMNOTE ---
Identification - Identify Employment Status: Unemployed Hx Psychiatric Hospitalization: Yes Prior Psychiatric Diagnosis: Schizophrenia Arrived to Hospital Via: Car History - Objective HPI: HISTORY AND PHYSICAL Patient: Drew Barber Date of : 1995 Date of Admission: 04/09/2017 Reason For admission: patient has a history of chronic and persistent mental illness and has been non compliant with treatment currently having acute psychotic symptoms including paranoid delsuions and thought disorganization. He has poor appetite and insomnia. He is gravely disabled and unable to function in community requiring inpatient level of psychiatric care. History of the Present Illness: 21 yo single male living with parents. patient has a history of schizophrenia and Cannabis dependence diagnosed in late teens with poor treatment compliance with both medications and provider visits This is third [facility] psychiatric admission. The other two admissions were earlier this year. In May 2016 he was admitted with paranoid delusions and thought disorder. He was discharged to inpatient drug rehab on Serouqel IR 300 mg. patient left program after several days. He was readmitted a couple of months later with paranoid delusions involving his brother whom he believed was trying to harm him. patient had SI and HI at this time and had not been taking his seroquel. Patient was restarted on his medication, stabalized and was discharged on seroquel XR 400 mg daily. Patient reports that he took his medication for two months and then discontinued them sometime over summer. He reports he was smoking Marijuana heavily since that time. He has not been sleeping or eating for past 1 to 2 wees. He has been having intrusive thoughts, paranoid delusions (believes that cigarette he bummed from his friend one week ago was laced with poison and is the reason he has been "spacey"). Patient was brought to hospital by him mother. He denied suicidal or homicidal ideation in the ED but agreed to voluntary psychiatric admission in order to reestablish his medication treatment Past Psychiatric History: as above. no known history of suicide attempt. Substance History: History of Cannabis use since high school. also reports that he used to use MDMA for several months. denies heroine,cocaine, methamphetamine, or alcohol use. Sent for inpatient rehab earlier this year from psych. inpatient but left the program after a few days. Past Medical History: unremarkable Allergies: NKDA Family/Psychosocial History: patient lives with parents and 3 of his 3 brothers. one of his brothers is diagnosed with schizophrenia. The other brother at home also has mental health issues. Patient denies any legal problems or history of incarceration or arrest. he does not work due to severity of his mental illness. denies any history of physical or sexual trauma. currently single and not in a relationship with anyone. not currently sexually active. denies history of STD. Vital Signs on Day of Admission: Temp Pulse Resp BP Pulse Ox 98.0 F 118 17 144/82 98 04/09/17 19:03 04/09/17 19:03 04/09/17 19:03 04/09/17 19:03 04/09/17 19:03 Review of Systems: performed by Dr. Parish Helton on 04/09/2017 and was unremarkable Physical Exam performed by Dr. Parish Helton on 04/09/2017 and documented as follows: "Physical Exam Summary: Appearance: Well appearing, no pain distress Skin: warm, dry, reflects adequate perfusion Head/face: normal Eyes: EOMI, SHELL ENT: normal Neck: supple, non-tender Respiratory: CTA, breath sounds present Cardiovascular: RRR, pulses symmetrical Abdomen: non-tender, soft Bowel: present Musculoskeletal: normal, strength/ROM intact Neuro: normal, sensory motor intact, A&Ox3 Psych: depressed affect" MENTAL STATUS EXAMINATION: Well developed and nourished 21 yo male. Patient was lying supine in bed when I interviewed him. He had been sleeping prior to the interview. patient was poorly related, made poor eye contact and had difficulty establishing rapport. speech remarkable for decreased spontaneity, fluency, latent responses which patient states is due to intrusive and repetetive thoughts which cause him to be internally distracted while having conversation with another person. Mood: euthymic Affect blunted, low amplitude, limited range Thought process: logical responses. no evidence of flight of ideas, irrelevant or illogical constructs. patient reports having paranoid delusions and "weird thoughts" but does not elaborate. He denies suicidal or homicidal urges, thoughts, intent or plans. Alert and fully oriented in all spheres. clear sensorium. patient does possess insight with regard to his illness. His judgment is tenuous due to his psychotic illness which often impairs judgment. there is no evidence of symptoms consistent with rasheed or depression. Admissinon Labs: Laboratory Results - last 24 hr 04/09/17 04/09/17 04/09/17 19:52 19:52 19:52 WBC 12.0 H RBC 5.88 H Hgb 17.0 Hct 49 MCV 84 MCH 29 MCHC 35 RDW 13 Plt Count 154 MPV 14 H Neut % (Auto) 68.0 Lymph % (Auto) 20.3 L [place] % (Auto) 11.2 H Eos % (Auto) 0.2 Baso % (Auto) 0.3 Absolute Neuts (auto) 8.2 H Absolute Lymphs (auto) 2.4 Absolute Monos (auto) 1.3 H Absolute Eos (auto) 0 Absolute Basos (auto) 0 Absolute Nucleated RBC 0.02 Nucleated RBC % 0.1 Sodium 136 Potassium 3.6 Chloride 102 Carbon Dioxide 24 Anion Gap 10 BUN 15 Creatinine 1.15 Est GFR ( Amer) 101.4 Est GFR (Non-Af Amer) 78.8 BUN/Creatinine Ratio 13.0 Glucose 122 H Calcium 9.9 Total Bilirubin 0.80 AST 20 ALT 30 Alkaline Phosphatase 91 Total Protein 7.9 Albumin 4.8 Globulin 3.1 Albumin/Globulin Ratio 1.5 TSH 1.66 Urine Color Urine Appearance Urine pH Ur Specific [place] Urine Protein Urine Ketones Urine Blood Urine Nitrate Urine Bilirubin Urine Urobilinogen Ur Leukocyte Esterase Urine WBC (Auto) Urine RBC (Auto) Urine Bacteria Urine Glucose Salicylates < 2.50 Urine Opiates Screen None detected Acetaminophen < 15 Ur Barbiturates Screen None detected Ur Phencyclidine Scrn None detected Ur Amphetamines Screen None detected U Benzodiazepines Scrn None detected Urine Cocaine Screen None detected U Cannabinoids Screen Presumptive positive H Serum Alcohol < 10 Impression: 21 year old single male with history of schizophrenia admitted for exacerbation of psychotic symptoms in the context of non adherance with treatment and daily use of Cannabis. Patient does have insight with regard to his mental illness, signed in voluntarily and wishes to begin receiving treatment again. patient is gravely disabled and requires in patient level of stay to restart his antipsychotic treatment. I spoke with patient in detail about benefits of OSULLIVAN but he is not in favor of receiving monthly injections at this time. He would like to restart Seroquel XR 200 mg which he feels is the optimal dose. Diagnoses: Schizophrenia non adherance with treatment Plan/Recommendations: Patient admitted to unit on voluntary status Q15 min observation status and will advance as appropriate Discussed medication treatment with patient including oral versus OSULLIVAN antipsychotic treatment for schizophrenia as well as benefits/risk profile, and potential short and mcc side effects. Patient was able to give informed consent to take the following medications to target his psychotic symptoms: Seroquel XR 200 mg Q 5 pm Seroquel IR 100 mg QHS prn insomnia discharge plan will be home. patient would benefit from outpatient substance abuse program but he is not amenable to this referral at this time. repeat wbc prior to discharge will send thyroid function tests
[2017-04-10] MEDS ORDERED: QUEtiapine TAB* 100 MG PO PRN (14:04)
[2017-04-10] MEDS ORDERED: QUEtiapine XR TAB* 200 MG PO SCH (17:00)
[2017-04-10] MEDS: QUEtiapine TAB* 100 MG PO SCH (21:57)
[2017-04-11] MEDS: Vitamin THERAPEUTIC TAB PO SCH (09:11)
--- NOTE | 2017-04-11 11:47 | PN ---
Subjective - Subjective Date of Service: 04/11/17 Service Type: 17224 Hosp care 15 min low complexity Subjective: Psychiatric Attending Daily Progress note: slept well overnight. patient approached me at the end of the day yesterday and requested that I write him for the IR seroquel rather than the XR because it worked well in helping him to fall asleep quickly the night before. Per nursing patient keeps mostly to himself on the unit. complies with unit rules. minimal interaction with other patients. Not attending many groups. He is eating his meals and taking adequate fluids in as well. I met with Drew today for about 30 minutes. He presents as casually dressed with poor hygiene. He makes intermittent eye contact. He has fairly preserved insight with regard to his illness. speech is normal rate and volume but fluency and spontaneity is diminished. He shows very significant delays in response time and he clearly is internally distracted during these brief pauses. At times he will answer appropriately while at other times he will ask me to repeat the question. When asked what is going on in his mind. He talks of "ruminations". He denies that he is hearing a voice in his head. He reports that he is preoccupied with thoughts of his brother. Asked if he was having homicidal or suicidal thoughts he quickly responded no and was almost irratated by the suggestion. He then told me that he knew that he could become very paranoid. He has significant paucity of amount and content of speech. He has intermittent thought blocking as well. He denies feeling depressed. He told me that "...SSRI's make me suicidal..." we discussed benefits of OSULLIVAN such as haldol, invega, Risperdal and Prolixin. He told me that he was fearful of needles and wanted to stay with Seroquel. He agreed to allow me to titrate the dosage up to a more therapeutic dosage and he also agreed to accept a referral for visiting nurse to come to his home after discharge for purpose of medication administration to help with adherance Impression: Schizophrenia Plan: Titrate Seroquel IR up to 300 mg tonight and then 400 mg tomorrow family meeting with parents on potential discharge for monday or monday depending on patient's ability to tolerate increase in seroquel family meeting with both parents on or Monday would like to refer patient to Intensive outpatient or partial hospital program if that is available or at least to structured outpatient program more than once a week will discuss with team to find out what is available Plan - Plan Treatment Plan:
[2017-04-11] MEDS: QUEtiapine TAB* 100 MG PO SCH (21:19)
--- NOTE | 2017-04-12 10:50 | PN ---
Subjective - Subjective Date of Service: 04/12/17 Service Type: 62292 Hosp care 15 min low complexity Subjective: tolerating seroquel without side effects feels that his psychotic symptoms have diminished reports that his intrusive obsessional thinking has decreased in severity and frequency. He is more able to do other tasks with less interference from illogic and irrelevant thoughts. MSE: poorly related poor eye contact fair hygiene. cooperative mood: irritable but not explosive affect: decreased range, blunting TP: has latent response times during engagement in conversation, distracted by internal stimuli logical and coherent TC: denies SI or HI. denies hallucinations. reports he is distracted by intrusive thoughts and images in his head. these thoughts are not violent. He believes that he is receiving messages or communications but cannot say from who or where these are coming. he feels that medication is helping him and requested discharge in the next few days. I explained that I wanted to titrate up to 400 mg and to have a family meeting with his parents. he agreed to medication goal and to meeting with parents. He also talked about wanting to stop using Cannabis for good. He then talked about staying on his Seroquel and following up with his mental health providers on a regular basis. insight: partial judgment: intact at this time Impression: 21 yo with schizophrenia, non compliant with mediation, admitted for exacerbation of psychosis patient is tolerating seroquel titration. He is resistant to idea of OSULLIVAN at this time. Plan: Increase Seroquel to 300 mg tonight and then 400 mg tomorrow family meeting with parents tomorrow probable discharge for monday with follow up at [facility] next week Plan - Plan Treatment Plan:
[2017-04-12] MEDS: Vitamin THERAPEUTIC TAB PO SCH (10:53)
[2017-04-12] MEDS ORDERED: QUEtiapine TAB* 300 MG PO SCH (21:00)
[2017-04-13] MEDS: Vitamin THERAPEUTIC TAB PO SCH (08:41)
--- NOTE | 2017-04-13 14:06 | PN ---
Subjective - Subjective Date of Service: 04/13/17 Service Type: 07343 Hosp care 15 min low complexity Subjective: Psychiatric Attending Progress Note Tolerated increase in Seroquel to 300 mg without any side effects denies slurred speech, dizziness, gait instability, dry mouth, blurry vision, vertigo, palpitations, excessive lethargy/sedation Met with Merced X 30 minutes today I shared that I had met up with his father who I ran into in the hospital after visiting hours. Father shared with me that he has two other son's living in the home. one of the son's who also has psychotic disorder is in process of applying for suportive housing for mentally ill. Merced is close with him. the other son also has some emotional issues as he has been diagnosed with avoidant personality disorder. This is the brother that has been the focus of Merced's paranoid delusions. I asked Merced about this and he did go into a rambling dialogue about how his brother fixed his computer and in doing so exposed Merced's on line history. He continues to believe that Merced is monitoring his computer activity and may be sharing what sites he visits with others. Patient denied that he had any desire or intention to harm his brother. "I just want nothing to do with him." Merced continues to demonstrate long latency in response time as well as becoming mute abruptly while talking. This likely represents thought blocking and internal distractions such as intrusive and irrelevant thoughts. no indication of suicidality or homicidality. paranoia is present but there is no indication of agitation or fear on his part which are usually indicators of future violence. FATHER SHARED WITH ME THAT HE FEELS VERY COMFORTABLE WITH DISCHARGE FOR TOMORROW HE SEES MERCED CALMER, LESS BIZARRE, WITH IMPROVED FRUSTRATION TOLERANCE, AND NOT EXPRESSING PARANOID DELUSIONS WITH FREQUENCY THAT HE DOES WHEN NOT MEDICATED. HE ALSO WAS ENCOURAGED BY MERCED'S INTENTION OF STAYING ON HIS SEROQUEL AND NOT USING CANNABIS Assessment - Assessment Merits Inpatient Hospitalization: For Stabilization, Consolidate Improvements, For Discharge Planning Clinical Impression: 21 yo with schizophrenia admitted with acute exacerbation in context of non compliance. patient's mental status has improved with decreased symptoms severity/frequency. He is accepting of and compliant with seroquel titration Plan - Discharge Plan Additional Comments: Plan: INCREASE SEROQUEL TO 400 MG QHS DISCHARGE HOME TOMORROW AFTERNOON FOLLOW UP NEXT WEEK WITH [facility]
[2017-04-13] MEDS ORDERED: QUEtiapine TAB* 100 MG PO SCH (21:00)
[2017-04-13] MEDS ORDERED: QUEtiapine TAB* 300 MG PO SCH (21:00)
[2017-04-14 08:12] VITALS: BP 120/74
[2017-04-14] MEDS: Vitamin THERAPEUTIC TAB PO SCH (10:01)
--- NOTE | 2017-04-14 11:07 | DCNOTE ---
DC Assessment - Assessment Clinical Impression: 21 yo with schizophrenia admitted with acute exacerbation in context of non compliance. patient's mental status has improved with decreased symptoms severity/frequency. He is accepting of and compliant with seroquel titration Discharge Planning - Discharge Planning Medications: Current Medications Acetaminophen (Tylenol Tab*) 650 mg PO Q4H PRN PRN Reason: PAIN or TEMP > 101 F Al Hydrox/Mg Hydrox/Simethicone (Maalox Plus*) 30 ml PO Q4H PRN PRN Reason: INDIGESTION Diphenhydramine HCl (Benadryl Po*) 50 mg PO Q6H PRN PRN Reason: .AGITATION Multivitamins (Theragran Tab*) 1 tab PO DAILY [facility] Last Admin: 04/14/17 10:01 Dose: Not Given Quetiapine Fumarate (Seroquel Tab*) 100 mg PO ONCE PRN PRN Reason: AGITATION/INSOMNIA Last Admin: 04/11/17 21:19 Dose: 100 mg Quetiapine Fumarate (Seroquel Tab*) 300 mg PO BEDTIME [facility] Last Admin: 04/13/17 21:30 Dose: 300 mg Quetiapine Fumarate (Seroquel Tab*) 100 mg PO BEDTIME [facility] Last Admin: 04/13/17 21:30 Dose: 100 mg Discharge Planning: Prescriptions provided for discharge [] Yes [] No Follow up care details as per social work arrangements. Patient response to discharge plan: [] eager for discharge [] agreeable with discharge plan [] ambivalent about discharge [] disagrees with discharge today
== END 2017-04-14 12:50 | disposition home or self-care (01) | DRG 885 ==
LOC: ED 18:51 → BSU 23:44
PROVIDERS: ADMIT Psychiatry & Neurology Psychiatry; ATTEND Psychiatry & Neurology Psychiatry
DX: F20.9 Schizophrenia, unspecified (principal); R45.851 Suicidal ideations; Z91.14 Patient's other noncompliance with medication regimen; F12.20 Cannabis dependence, uncomplicated; F32.9 Major depressive disorder, single episode, unspecified; F41.0 Panic disorder [episodic paroxysmal anxiety]; F90.9 Attention-deficit hyperactivity disorder, unspecified type; F15.90 Other stimulant use, unspecified, uncomplicated; Z56.0 Unemployment, unspecified; Z91.19 Patient's noncompliance with other medical treatment and regimen; Z81.8 Family history of other mental and behavioral disorders
CPT/HCPCS: 36415; 80053; 80307; 80320; 80329; 81003; 81015; 84443; 85025; 99222; 99231; 99238; A9270-GY; G0480

== ENCOUNTER 2018-11-12 19:21 | Inpatient (IN) | payer OTHER, MEDICAID ==
--- NOTE | 2018-11-12 20:01 | ED ---
Psychiatric Complaint - HPI Summary HPI Summary: This pt is a 23 y/o M is presenting to [facility] accompanied by his father with a CC of suicidal ideations with a plan since 11/11/18. The pt states that he has not been taking any medications and has not been in treatment for a year. He states that he has been smoking marijuana instead as a self-prescribed medication. He states that he will jump off a regine that has been present in the back of his mind but has increased in severity. He denies any alcohol or drug usage other than marijuana. He denies any pain, fevers, cough, CP, headaches, abdominal pain, N/V/D, and sore throat. He also denies any auditory or visual hallucinations and homicidal ideations. He stated no aggravating or alleviating factors but was insistent that he has always had these thoughts. Pt has a prior history of OCD and schizophrenia. - History Of Current Complaint Chief Complaint: [facility]entalHealth Time Seen by Provider: 11/12/18 19:33 Hx Obtained From: Patient Onset/Duration: Gradual Onset, Still Present, Worse Since - 11/11/18 Timing: Constant Severity Initially: Mild Severity Currently: Severe Character: Depressed Aggravating Factor(s): Nothing Alleviating Factor(s): Nothing Associated Signs And Symptoms: Positive: Negative Related History: Positive For: Prior Psychiatric Issues - OCD and schizophrenia Has Suicidal: Reports: Thoughts, With A Plan Has Homicidal: Denies: Thoughts, With A Plan - Allergies/Home Medications Allergies/Adverse Reactions: Allergies Allergy/AdvReac Type Severity Reaction Status Date / Time No Known Allergies Allergy Verified 11/12/18 19:27 PMH/Surg Hx/FS Hx/Imm Hx Previously Healthy: Yes Sensory History: Denies: Hx Contacts or Glasses, Hx Hearing Aid Opthamlomology History: Denies: Hx Contacts or Glasses Psychiatric History: Reports: Hx Anxiety, Hx Attention Deficit Hyperactivity Disorder, Hx Depression, Hx Panic Disorder, Hx Inpatient Treatment, Hx Community Mental Health Tx, Hx Schizophrenia, Hx of Violent Episodes Against Others, Hx Substance Abuse, Other Psychiatric Issues/Disorders - brother has schizophrenia, stated he has OCD Denies: Hx Eating Disorder, Hx Post Traumatic Stress Disorder, Hx Bipolar Disorder, Hx Suicide Attempt Infectious Disease History: No Infectious Disease History: Denies: Traveled Outside the [place] in Last 30 Days - Family History Known Family History: Positive: Other - schizophrenia, bipolar - Social History Alcohol Use: Occasionally Hx Substance Use: Yes - mushrooms, was prescribed adderall but made him anxious Substance Use Type: Reports: Marijuana Substance Use Comment - Amount & Last Used: adderal, lionsmane mushrooms Hx Tobacco Use: No Smoking Status (MU): Never Smoked Tobacco Review of Systems Negative: Fever Negative: Sore Throat Negative: Chest Pain Negative: Abdominal Pain, Vomiting, Diarrhea, Nausea Negative: Headache Psychological: Other - NEGATIVE: homicidal ideations Positive: Depressed, Other - suicidal ideations All Other Systems Reviewed And Are Negative: Yes Physical Exam - Summary Physical Exam Summary: VITAL SIGNS: Reviewed. GENERAL: Patient is a well-developed and nourished MALE who is lying comfortable in the stretcher. Patient is not in any acute respiratory distress. HEAD AND FACE: No signs of trauma. No ecchymosis, hematomas or skull depressions. No sinus tenderness. EYES: PERRLA, EOMI x 2, No injected conjunctiva, no nystagmus. EARS: Hearing grossly intact. Ear canals and tympanic membranes are within normal limits. MOUTH: Oropharynx within normal limits. NECK: Supple, trachea is midline, no adenopathy, no JVD, no carotid bruit, no c- spine tenderness, neck with full ROM CHEST: Symmetric, no tenderness at palpation LUNGS: Clear to auscultation bilaterally. No wheezing or crackles. CVS: Regular rate and rhythm, S1 and S2 present, no murmurs or gallops appreciated. ABDOMEN: Soft, non-tender. No signs of distention. No rebound no guarding, and no masses palpated. Bowel sounds are normal. EXTREMITIES: FROM in all major joints, no edema, no cyanosis or clubbing. NEURO: Alert and oriented x 3. No acute neurological deficits. Speech is normal and follows commands. SKIN: Dry and warm PSYCH: pt is depressed and suicidal. Triage Information Reviewed: Yes Vital Signs On Initial Exam: Initial Vitals Temp Pulse Resp BP Pulse Ox 98.7 F 88 16 141/93 97 11/12/18 19:23 11/12/18 19:23 11/12/18 19:23 11/12/18 19:23 11/12/18 19:23 Vital Signs Reviewed: Yes Diagnostics - Vital Signs Vital Signs Temp Pulse Resp BP Pulse Ox 11/12/18 19:23 98.7 F 88 16 141/93 97 - Laboratory Result Diagrams: 11/12/18 20:28 11/12/18 20:28 Lab Statement: Any lab studies that have been ordered have been reviewed, and results considered in the medical decision making process. Course/Dx - Course Course Of Treatment: Pt is a 23 y/o M presenting to [facility] with a CC of suicidal ideations with a plan that consisted of jumping off a regine. He stated that he has always felt that he should kill himself but since 11/11/18 the thoughts have gotten worse. His PE found no abnormal findings other than the pt is depressed and suicidal. His lab tests found that he was positive for cannabinoid usage but showed no other acute findings. He was mentally cleared for U Eval at [address]. Per Dr. Wilkerson, psychiatrist, the pt will be admitted voluntarily to [facility] 's PSych cano with a Dx of unspecified depression at 2245. - Differential Dx/Clinical Impression Provider Diagnosis: Depression - Physician Notifications Discussed Care Of Patient With: Elijah Wilkerson Time Discussed With Above Provider: 22:45 Instructed by Provider To: Admit As Inpatient Discharge - Sign-Out/Discharge Documenting (check all that apply): Patient Departure - admitted voluntarily Patient Received Moderate/Deep Sedation with Procedure: No - Discharge Plan Condition: Stable Disposition: PSYCHIATRIC FACILITY-[facility] Referrals: Enoc López MD [Primary Care Provider] - - Attestation Statements Document Initiated by Scribe: Yes Documenting Scribe: Keaton Bolton Provider For Whom Scribe is Documenting (Include Credential): Carmen Franks MD Scribe Attestation: Keaton Alvarez, scribed for Carmen Franks MD on 11/12/18 at 2303. Status of Scribe Document: Ready
[2018-11-12 20:15] LABS: Urine Appearance Cloudy; Urine Bilirubin Negative (Negative); Urine Blood Negative (Negative); Urine Color Yellow; Urine Glucose Negative (Negative); Urine Ketones Negative (Negative); Urine Nitrite Negative (Negative); Urine Protein Negative (Negative); Urine Specific Gravity 1.016 (1.010-1.030); Urine Urobilinogen Negative (Negative)
[2018-11-12 20:26] LABS: Urine Benzodiazepine Screen None Detected (None Detect); Urine Opiates Screen None Detected (None Detect)
[2018-11-12 20:42] LABS: ABS Monocytes 0.8 10^3/ul (0-0.8); ABS Neutrophils 6.4 10^3/ul (1.5-7.7); Eosinophil % 0.4 %; Hematocrit 46 % (42-52); Hemoglobin 16.1 g/dL (14.0-18.0); Lymphocyte % 21.3 %; Mean Corpuscular HGB Conc 35 g/dL (31-36); Mean Corpuscular Hemoglobin 30 pg (27-31); Mean Corpuscular Volume 85 fL (80-94); Mean Platelet Volume 14.2 fL (7.4-10.4); Nucleated Red Blood Cells % 0.1; Platelet Count 102 10^3/uL (150-450); Red Blood Count 5.43 10^6 /uL (4.18-5.48); Red Cell Distribution Width 14 % (10-15); White Blood Count 9.3 10^3/uL (3.5-10.8)
[2018-11-12 20:51] LABS: ALT 24 U/L (7-52); AST 17 U/L (13-39); Albumin 4.8 g/dL (3.2-5.2); Albumin/Globulin Ratio 1.6 (1-3); Alkaline Phosphatase 106 U/L (34-104); Anion Gap 7 mmol/L (2-11); BUN/Creatinine Ratio 8.7 (8-20); Blood Urea Nitrogen 8 mg/dL (6-24); CO2 Carbon Dioxide 26 mmol/L (22-32); Calcium 10.2 mg/dL (8.6-10.3); Chloride 105 mmol/L (101-111); EGFR African American 121.3 (>60); EGFR Non-African American 100.2 (>60); Glucose 100 mg/dL (70-100); Potassium 4.2 mmol/L (3.5-5.0); Sodium 138 mmol/L (135-145); Total Protein 7.8 g/dL (6.4-8.9)
[2018-11-12 20:58] LABS: Acetaminophen < 15 mcg/mL; Alcohol < 10 mg/dL (<10); Salicylate < 2.50 mg/dL (<30)
[2018-11-12 21:14] LABS: TSH (Thyroid Stimulating Horm) 1.17 mcIU/mL (0.34-5.60)
[2018-11-12] MEDS ORDERED: Al Hydrox/Mg Hydrox/Simet LIQ* 30 ML UDC PO PRN (23:42)
[2018-11-12] MEDS ORDERED: Acetaminophen TAB* 325 MG PO PRN (23:42)
[2018-11-13] MEDS: Vitamin THERAPEUTIC TAB PO SCH (08:38)
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
[2018-11-13] MEDS ORDERED: CMCS: FluvoxaMINE (NF) 50 MG TAB PO SCH (14:00)
--- NOTE | 2018-11-14 08:58 | PN ---
Subjective - Subjective Date of Service: 11/14/18 Service Type: 18412 Hosp care 35 min high complexity Subjective: Nursing Report: Patient was visible on unit, Slept overnight without behavioral incidents. CC: "Fine Patient was seen and evaluated in the common room. The patient reported he feels safe on the unit. He reported feeling anxious and tired after taking his medication yesterday. He plans to complete the MMPI today. He reported having adequate appetite and sleep. Per nursing no behavioral issues or overnight events reported. Objective - General Observations Appearance: Neat Appears Stated Age: Yes Stature: WNL Posture: WNL Eye Contact: Average Behavior/Activity: WNL - Interaction Observations Attitude Towards Examiner: Cooperative Stated Mood: Dysphoric Affect: Blunted Speech Pattern/Tone: Clear Thought Process: Coherent Perception: WNL Thought Content: Obsessional Thought Process: Lethality: Passive Wish Hallucination Type: Denies - Cognitive Function Orientation: A&O x 4 Level of Consciousness: Awake - Medication Compliance Cooperative with Inpatient Medication Regimen: Yes - Group Participation Participates in Group Activities: No Assessment - Assessment Merits Inpatient Hospitalization: For Immediate Safety Clinical Impression: 23 year old male with history of poly substance use and depression came to the hospital and was admitted to the BSU at [facility] for suicidal ideation with plan to jump from bridge. Plan - Plan Treatment Plan: Name: MERCED RANGEL Birthdate: 1995 [id number] #Q30 minute observation. # The patient requires psychiatric inpatient admission at this time to assure safety, receive treatment and work toward stabilization. #MMPI # Attempted to Obtain collateral information from his parents #Reviewed past records in EMR. # Collaboration with Flexible Machining System Machinist Chanel Burton # Continue fluvoxamine 100mg qhs for depression and OCD. Substance Abuse resources offered and declined. Tobacco use disorder: nicotine supplement offered and patient declined. #Goals before discharge include: To eliminate/ reduce suicidal ideation Sodium 138 mmol/L (135-145) 11/12/18 20:28 Potassium 4.2 mmol/L (3.5-5.0) 11/12/18 20:28 BUN 8 mg/dL (6-24) 11/12/18 20:28 Creatinine 0.92 mg/dL (0.67-1.17) 11/12/18 20:28 Calcium 10.2 mg/dL (8.6-10.3) 11/12/18 20:28 AST 17 U/L (13-39) 11/12/18 20:28 ALT 24 U/L (7-52) 11/12/18 20:28 Vital Signs Temp Pulse Resp BP Pulse Ox 98.0 F 76 16 133/67 98 11/14/18 08:00 11/14/18 08:00 11/14/18 08:00 11/14/18 08:00 11/14/18 08:00 Continued Medication Management: Continue Outpt Medication Medications: Current Medications Acetaminophen (Tylenol Tab*) 650 mg PO Q4H PRN PRN Reason: PAIN or TEMP > 101 F Last Admin: 11/13/18 00:15 Dose: 650 mg Al Hydrox/Mg Hydrox/Simethicone (Maalox Plus*) 30 ml PO Q4H PRN PRN Reason: INDIGESTION Fluvoxamine Maleate (Fluvoxamine (Nf)) 100 mg PO 2100 RAFA Hydroxyzine HCl (Atarax Tab*) 25 mg PO Q6H PRN PRN Reason: ANXIETY Multivitamins (Theragran Tab*) 1 tab PO DAILY [facility] Last Admin: 11/13/18 08:38 Dose: Not Given - Discharge Plan Discharge Plan: Inpatient Hospitalization
[2018-11-14] MEDS: Vitamin THERAPEUTIC TAB PO SCH (09:04)
[2018-11-14] MEDS ORDERED: CMC:FluvoxaMINE (NF) 50 MG TAB PO SCH (21:00)
[2018-11-15] MEDS: hydrOXYzine HCL TAB* 25 MG PO PRN ×2 (02:00→20:18)
[2018-11-15 06:59] LABS: HDL Cholesterol 27.5 mg/dL
[2018-11-15] MEDS: Vitamin THERAPEUTIC TAB PO SCH (09:20)
--- NOTE | 2018-11-15 15:03 | PN ---
Subjective - Subjective Date of Service: 11/15/18 Service Type: 24069 Hosp care 35 min high complexity Subjective: Nursing Report: Patient was visible on unit, refused medications, Slept most of the morning without incident. He is not attending group activities. CC: "Fine" Patient was seen and evaluated in the common room. The patient reported that the obsessive thoughts he was having , have diminished. He reported having adequate appetite and sleep. Per staff patient sleeps most of the day. The patient plans to go to groups. His mother came to visit today. The patient reported being sensitive to medications and that the first trial of medications caused him to have anxiety. Objective - General Observations Appearance: Disheveled Appears Stated Age: Yes Stature: WNL Posture: Slumped Behavior/Activity: WNL, Slowed - Interaction Observations Attitude Towards Examiner: Cooperative Stated Mood: Dysphoric Affect: Blunted Speech Pattern/Tone: Clear Thought Process: Coherent Perception: WNL Thought Content: Self-Deprecatory Hallucination Type: None Delusion Type: None - Cognitive Function Orientation: A&O x 4 Level of Consciousness: Awake - Medication Compliance Cooperative with Inpatient Medication Regimen: Partial - Group Participation Participates in Group Activities: Partial Assessment - Assessment Merits Inpatient Hospitalization: For Immediate Safety Clinical Impression: 23 year old male with history of poly substance use and depression came to the hospital and was admitted to the BSU at [facility] for suicidal ideation with plan to jump from bridge. Plan - Plan Treatment Plan: Name: MERCED RANGEL Birthdate: 1995 [id number] #Q30 minute observation. # The patient requires psychiatric inpatient admission at this time to assure safety, receive treatment and work toward stabilization. #MMPI completed showing elevation of fake bad , paranoia and borderline traits. # Family meeting with mother took place. Mother confirmed no guns and plans to lock up excess of medications. #Reviewed past records in EMR. # Collaboration with Director Index Chanel Burton # Decrease fluvoxamine to 50mg qhs for depression and OCD. Substance Abuse resources offered and declined. Tobacco use disorder: nicotine supplement offered and patient declined. #Goals before discharge include: To eliminate/ reduce suicidal ideation Sodium 138 mmol/L (135-145) 11/12/18 20:28 Potassium 4.2 mmol/L (3.5-5.0) 11/12/18 20:28 BUN 8 mg/dL (6-24) 11/12/18 20:28 Creatinine 0.92 mg/dL (0.67-1.17) 11/12/18 20:28 Hemoglobin A1c 5.2 % (4.0-5.6) 11/12/18 20:25 Calcium 10.2 mg/dL (8.6-10.3) 11/12/18 20:28 AST 17 U/L (13-39) 11/12/18 20:28 ALT 24 U/L (7-52) 11/12/18 20:28 Triglycerides 84 mg/dL 11/15/18 06:29 Cholesterol 108 mg/dL 11/15/18 06:29 LDL Cholesterol 64 mg/dL 11/15/18 06:29 Vital Signs Temp Pulse Resp BP Pulse Ox 98.5 F 83 16 132/72 100 11/15/18 08:55 11/15/18 08:55 11/15/18 14:11 11/15/18 08:55 11/15/18 08:55 Continued Medication Management: Continue Outpt Medication Medications: Current Medications Acetaminophen (Tylenol Tab*) 650 mg PO Q4H PRN PRN Reason: PAIN or TEMP > 101 F Last Admin: 11/13/18 00:15 Dose: 650 mg Al Hydrox/Mg Hydrox/Simethicone (Maalox Plus*) 30 ml PO Q4H PRN PRN Reason: INDIGESTION Hydroxyzine HCl (Atarax Tab*) 25 mg PO Q6H PRN PRN Reason: ANXIETY Last Admin: 11/15/18 02:00 Dose: 25 mg Multivitamins (Theragran Tab*) 1 tab PO DAILY [facility] Last Admin: 11/15/18 09:20 Dose: Not Given - Discharge Plan Discharge Plan: Inpatient Hospitalization
[2018-11-15] MEDS ORDERED: CMCS:FluvoxaMINE (NF) 50 MG TAB PO SCH (21:00)
[2018-11-16] MEDS: Vitamin THERAPEUTIC TAB PO SCH (08:27)
--- NOTE | 2018-11-16 11:50 | PN ---
Subjective - Subjective Date of Service: 11/16/18 Service Type: 44644 Hosp care 35 min high complexity Subjective: Nursing Report: Patient was visible on unit, patient did not sleep restfully overnight. He is not attending group activities. CC: "Fine" Patient was seen and evaluated today in his room. The patient reported he feels that the medication kept him up all night and so he slept all day. He reported having adequate appetite. The patient reported feeling less obsessive over his thoughts. His mother came to visit today. Patient looks forward to going to school in the fall. Objective - General Observations Appearance: Disheveled Appears Stated Age: Yes Stature: Overweight Posture: Slumped Eye Contact: Average Behavior/Activity: Slowed - Interaction Observations Attitude Towards Examiner: Cooperative Stated Mood: Dysphoric Affect: Blunted Speech Pattern/Tone: Clear Thought Process: Coherent Perception: WNL Thought Content: WNL Hallucination Type: None Delusion Type: None - Cognitive Function Orientation: A&O x 4 Level of Consciousness: Awake - Medication Compliance Cooperative with Inpatient Medication Regimen: Yes - Group Participation Participates in Group Activities: No Assessment - Assessment Merits Inpatient Hospitalization: For Immediate Safety Clinical Impression: 23 year old male with history of poly substance use and depression came to the hospital and was admitted to the BSU at [facility] for suicidal ideation with plan to jump from bridge. Plan - Plan Treatment Plan: Name: MERCED RANGEL Birthdate: 1995 [id number] #Q30 minute observation. # The patient requires psychiatric inpatient admission at this time to assure safety, receive treatment and work toward stabilization. #MMPI completed showing elevation of fake bad , paranoia and borderline traits. # Collaboration with Supervisor Securities Vault Chanel Burton # Fluvoxamine to 50mg po daily # Baseline functioning confirmed with his mother Substance Abuse resources offered and declined. Tobacco use disorder: nicotine supplement offered and patient declined. #Goals before discharge include: To eliminate/ reduce suicidal ideation Tentative Discharge Monday Sodium 138 mmol/L (135-145) 11/12/18 20:28 Potassium 4.2 mmol/L (3.5-5.0) 11/12/18 20:28 BUN 8 mg/dL (6-24) 11/12/18 20:28 Creatinine 0.92 mg/dL (0.67-1.17) 11/12/18 20:28 Hemoglobin A1c 5.2 % (4.0-5.6) 11/12/18 20:25 Calcium 10.2 mg/dL (8.6-10.3) 11/12/18 20:28 AST 17 U/L (13-39) 11/12/18 20:28 ALT 24 U/L (7-52) 11/12/18 20:28 Triglycerides 84 mg/dL 11/15/18 06:29 Cholesterol 108 mg/dL 11/15/18 06:29 LDL Cholesterol 64 mg/dL 11/15/18 06:29 Vital Signs Temp Pulse Resp BP Pulse Ox 98.5 F 77 16 117/76 98 11/16/18 08:04 11/16/18 08:04 11/16/18 08:04 11/16/18 08:04 11/16/18 08:04 Continued Medication Management: Continue Outpt Medication Medications: Current Medications Acetaminophen (Tylenol Tab*) 650 mg PO Q4H PRN PRN Reason: PAIN or TEMP > 101 F Last Admin: 11/13/18 00:15 Dose: 650 mg Al Hydrox/Mg Hydrox/Simethicone (Maalox Plus*) 30 ml PO Q4H PRN PRN Reason: INDIGESTION Fluvoxamine Maleate (Fluvoxamine (Nf)) 50 mg PO 2100 [facility] Last Admin: 11/15/18 20:18 Dose: 50 mg Hydroxyzine HCl (Atarax Tab*) 25 mg PO Q6H PRN PRN Reason: ANXIETY Last Admin: 11/15/18 20:18 Dose: 25 mg Multivitamins (Theragran Tab*) 1 tab PO DAILY [facility] Last Admin: 11/16/18 08:27 Dose: Not Given - Discharge Plan Discharge Plan: Inpatient Hospitalization Outpatient Program: [facility]
[2018-11-16] MEDS: hydrOXYzine HCL TAB* 25 MG PO PRN (22:54)
[2018-11-17] MEDS: FluvoxaMINE (NF) 50 MG TAB PO SCH (09:13)
[2018-11-17] MEDS: Vitamin THERAPEUTIC TAB PO SCH (09:14)
[2018-11-17] MEDS: hydrOXYzine HCL TAB* 25 MG PO PRN (20:59)
[2018-11-18] MEDS: FluvoxaMINE (NF) 50 MG TAB PO SCH (14:11)
[2018-11-18] MEDS: Vitamin THERAPEUTIC TAB PO SCH (14:11)
--- NOTE | 2018-11-18 14:33 | PN ---
Subjective - Subjective Date of Service: 11/18/18 Subjective: Found in bed, endorses still feeling tired despite restful night of sleep. He complains of still having intrusive and ego dystonic thoughts. He denies side effects from newly started Fluvoxamine. He asserts that he has tried attending a few groups and did not get any benefits from them. Per staff, he has been mostly seclusive to his room. Objective - General Observations Appearance: Neat Appears Stated Age: Yes Stature: WNL Posture: Other (See Comment) - laying in bed Eye Contact: Average Behavior/Activity: WNL - Interaction Observations Attitude Towards Examiner: Defensive Stated Mood: Dysphoric Affect: Restricted Speech Pattern/Tone: Clear Perception: WNL Thought Content: Obsessional Hallucination Type: None Delusion Type: None - Cognitive Function Orientation: A&O x 4 Level of Consciousness: Awake Cognition: WNL Estimated Intelligence: Normal Insight: Difficulty Acknowledging Presence of Psyciatric Problems Judgment Within Normal Limits: Yes - Medication Compliance Cooperative with Inpatient Medication Regimen: Yes - Group Participation Participates in Group Activities: Partial Assessment - Assessment Clinical Impression: 23 year old male with history of poly substance use and depression came to the hospital and was admitted to the BSU at [facility] for suicidal ideation with plan to jump from bridge. Superficially engaged in programming, tolerating trial of Fluovoxamine. Plan - Plan Treatment Plan: Name: MERCED RANGEL Birthdate: 1995 [id number] #Q30 minute observation. # The patient requires psychiatric inpatient admission at this time to assure safety, receive treatment and work toward stabilization. #MMPI completed showing elevation of fake bad , paranoia and borderline traits. # Collaboration with Painter And Paperhanger Apprentice Chanel Burton # Fluvoxamine to 50mg po daily # Baseline functioning confirmed with his mother Substance Abuse resources offered and declined. Tobacco use disorder: nicotine supplement offered and patient declined. #Goals before discharge include: To eliminate/ reduce suicidal ideation Tentative Discharge Monday Sodium 138 mmol/L (135-145) 11/12/18 20:28 Potassium 4.2 mmol/L (3.5-5.0) 11/12/18 20:28 BUN 8 mg/dL (6-24) 11/12/18 20:28 Creatinine 0.92 mg/dL (0.67-1.17) 11/12/18 20:28 Hemoglobin A1c 5.2 % (4.0-5.6) 11/12/18 20:25 Calcium 10.2 mg/dL (8.6-10.3) 11/12/18 20:28 AST 17 U/L (13-39) 11/12/18 20:28 ALT 24 U/L (7-52) 11/12/18 20:28 Triglycerides 84 mg/dL 11/15/18 06:29 Cholesterol 108 mg/dL 11/15/18 06:29 LDL Cholesterol 64 mg/dL 11/15/18 06:29 Vital Signs Temp Pulse Resp BP Pulse Ox 98.5 F 77 16 117/76 98 11/16/18 08:04 11/16/18 08:04 11/16/18 08:04 11/16/18 08:04 11/16/18 08:04 Medications: Current Medications Acetaminophen (Tylenol Tab*) 650 mg PO Q4H PRN PRN Reason: PAIN or TEMP > 101 F Last Admin: 11/13/18 00:15 Dose: 650 mg Al Hydrox/Mg Hydrox/Simethicone (Maalox Plus*) 30 ml PO Q4H PRN PRN Reason: INDIGESTION Fluvoxamine Maleate (Fluvoxamine (Nf)) 50 mg PO DAILY@2000 [facility] Hydroxyzine HCl (Atarax Tab*) 25 mg PO 2100 PRN PRN Reason: ANXIETY Last Admin: 11/17/18 20:59 Dose: 25 mg Multivitamins (Theragran Tab*) 1 tab PO DAILY [facility] Last Admin: 11/18/18 14:11 Dose: Not Given - Discharge Plan Discharge Plan: Outpatient Follow Up Outpatient Program: TBD
[2018-11-18] MEDS ORDERED: FluvoxaMINE (NF) 50 MG TAB PO SCH (20:00)
[2018-11-18] MEDS: hydrOXYzine HCL TAB* 25 MG PO PRN (23:10)
[2018-11-19 08:55] VITALS: BP 120/67
[2018-11-19] MEDS: Vitamin THERAPEUTIC TAB PO SCH (09:51)
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
== END 2018-11-19 11:45 | disposition home or self-care (01) | DRG 885 ==
LOC: ED 19:21 → BSU 22:25
PROVIDERS: ADMIT Psychiatry & Neurology Psychiatry; ATTEND Psychiatry & Neurology Psychiatry
DX: F32.3 Major depressive disorder, single episode, severe with psychotic features (principal); R45.851 Suicidal ideations; F20.9 Schizophrenia, unspecified; F42.9 Obsessive-compulsive disorder, unspecified; F12.90 Cannabis use, unspecified, uncomplicated; F90.9 Attention-deficit hyperactivity disorder, unspecified type; F41.0 Panic disorder [episodic paroxysmal anxiety]; E66.3 Overweight; Z81.8 Family history of other mental and behavioral disorders; Z72.89 Other problems related to lifestyle; Z87.891 Personal history of nicotine dependence; Z68.31 Body mass index [BMI] 31.0-31.9, adult
CPT/HCPCS: 36415; 80053; 80061; 80307; 80320; 80329; 81003; 83036; 84443; 85025; 99222; 99231; 99233; 99238; 99284; A9270-GY; G0480

== ENCOUNTER 2019-09-13 09:11 | Inpatient (IN) ==
[2019-09-13 10:03] LABS: ABS Lymphocytes 1.4 10^3/ul (1.0-4.8); ABS Monocytes 0.8 10^3/ul (0-0.8); Eosinophil % 0.1 %; Hematocrit 48 % (42-52); Hemoglobin 16.4 g/dL (14.0-18.0); Lymphocyte % 14.5 %; Mean Corpuscular HGB Conc 34 g/dL (31-36); Mean Corpuscular Hemoglobin 29 pg (27-31); Mean Corpuscular Volume 85 fL (80-94); Mean Platelet Volume 13.5 fL (7.4-10.4); Nucleated Red Blood Cells % 0.1; Platelet Count 129 10^3/uL (150-450); Red Blood Count 5.66 10^6 /uL (4.18-5.48); Red Cell Distribution Width 13 % (10-15)
[2019-09-13 10:12] LABS: ALT 80 U/L (7-52); Albumin 4.8 g/dL (3.2-5.2); Albumin/Globulin Ratio 1.6 (1-3); Alkaline Phosphatase 116 U/L (34-104); BUN/Creatinine Ratio 9.9 (8-20); Blood Urea Nitrogen 9 mg/dL (6-24); CO2 Carbon Dioxide 23 mmol/L (22-32); Calcium 9.8 mg/dL (8.6-10.3); Chloride 102 mmol/L (101-111); EGFR African American 122.8 (>60); EGFR Non-African American 101.5 (>60); Glucose 109 mg/dL (70-100); Sodium 135 mmol/L (135-145); Total Protein 7.8 g/dL (6.4-8.9)
[2019-09-13 10:38] LABS: Acetaminophen < 15 mcg/mL; Alcohol, S < 10 mg/dL (<10); Salicylate < 2.50 mg/dL (<30)
[2019-09-13 10:52] LABS: TSH (Thyroid Stimulating Horm) 0.87 mcIU/mL (0.34-5.60)
[2019-09-13 10:58] LABS: AST 67 U/L (13-39); Anion Gap 10 mmol/L (2-11); Potassium 3.9 mmol/L (3.5-5.0)
[2019-09-13] MEDS ORDERED: Al Hydrox/Mg Hydrox/Simet LIQ 30 ML UDC PO PRN (13:31)
[2019-09-13] MEDS ORDERED: LURASIDONE 40 MG PO SCH (17:00)
[2019-09-14 08:33] LABS: Urine Appearance Cloudy; Urine Bilirubin Negative (Negative); Urine Blood Negative (Negative); Urine Color Yellow; Urine Glucose Negative (Negative); Urine Ketones Negative (Negative); Urine Nitrite Negative (Negative); Urine Protein Negative (Negative); Urine Specific Gravity 1.018 (1.010-1.030); Urine Urobilinogen Negative (Negative)
[2019-09-14 08:51] LABS: Urine Benzodiazepine Screen None Detected (None Detect); Urine Opiates Screen None Detected (None Detect)
[2019-09-17 08:38] LABS: HDL Cholesterol 31.3 mg/dL
[2019-09-19 08:32] VITALS: BP 154/90
== END 2019-09-19 13:26 | disposition home or self-care (01) | DRG 885 ==
LOC: ED 09:11 → BSU 13:32
PROVIDERS: ADMIT Psychiatry & Neurology Psychiatry; ATTEND Psychiatry & Neurology Psychiatry

== ENCOUNTER 2019-10-03 09:27 | Inpatient (IN) ==
[2019-10-03 10:27] LABS: Urine Appearance Clear; Urine Bilirubin Negative (Negative); Urine Blood Negative (Negative); Urine Color Yellow; Urine Glucose Negative (Negative); Urine Ketones Negative (Negative); Urine Nitrite Negative (Negative); Urine Protein Negative (Negative); Urine Specific Gravity 1.028 (1.010-1.030); Urine Urobilinogen Negative (Negative)
[2019-10-03 10:39] LABS: ABS Lymphocytes 1.3 10^3/ul (1.0-4.8); ABS Monocytes 0.8 10^3/ul (0-0.8); Eosinophil % 0.2 %; Hematocrit 45 % (42-52); Hemoglobin 15.5 g/dL (14.0-18.0); Lymphocyte % 14.2 %; Mean Corpuscular HGB Conc 34 g/dL (31-36); Mean Corpuscular Hemoglobin 29 pg (27-31); Mean Corpuscular Volume 86 fL (80-94); Mean Platelet Volume 13.6 fL (7.4-10.4); Platelet Count 132 10^3/uL (150-450); Red Blood Count 5.32 10^6 /uL (4.18-5.48); Red Cell Distribution Width 13 % (10-15); White Blood Count 8.9 10^3/uL (3.5-10.8)
[2019-10-03 10:41] LABS: Urine Benzodiazepine Screen None Detected (None Detect); Urine Opiates Screen None Detected (None Detect)
[2019-10-03 10:55] LABS: ALT 24 U/L (7-52); AST 14 U/L (13-39); Albumin 4.7 g/dL (3.2-5.2); Albumin/Globulin Ratio 1.7 (1-3); Alkaline Phosphatase 112 U/L (34-104); Anion Gap 9 mmol/L (2-11); BUN/Creatinine Ratio 9.9 (8-20); Blood Urea Nitrogen 8 mg/dL (6-24); CO2 Carbon Dioxide 24 mmol/L (22-32); Calcium 9.8 mg/dL (8.6-10.3); Chloride 105 mmol/L (101-111); EGFR African American 140.5 (>60); EGFR Non-African American 116.1 (>60); Globulin 2.7 g/dL (2-4); Glucose 109 mg/dL (70-100); Potassium 3.8 mmol/L (3.5-5.0); Sodium 138 mmol/L (135-145); Total Protein 7.4 g/dL (6.4-8.9)
[2019-10-03 11:32] LABS: Acetaminophen < 15 mcg/mL; Alcohol, S < 10 mg/dL (<10); Salicylate < 2.50 mg/dL (<30)
[2019-10-03 11:40] LABS: TSH (Thyroid Stimulating Horm) 1.03 mcIU/mL (0.34-5.60)
[2019-10-03] MEDS ORDERED: Al Hydrox/Mg Hydrox/Simet LIQ 30 ML UDC PO PRN (12:26)
[2019-10-07 08:08] LABS: HDL Cholesterol 28.9 mg/dL
[2019-10-09 08:39] VITALS: BP 139/74
== END 2019-10-09 13:09 | disposition home or self-care (01) | DRG 885 ==
LOC: ED 09:27 → BSU 16:23
PROVIDERS: ADMIT Psychiatry & Neurology Psychiatry; ATTEND Psychiatry & Neurology Psychiatry

== ENCOUNTER 2019-10-31 18:16 | Inpatient (IN) ==
[2019-10-31 18:59] LABS: ABS Lymphocytes 1.6 10^3/ul (1.0-4.8); ABS Monocytes 0.9 10^3/ul (0-0.8); Eosinophil % 0.5 %; Hematocrit 46 % (42-52); Hemoglobin 16.2 g/dL (14.0-18.0); Lymphocyte % 16.9 %; Mean Corpuscular HGB Conc 35 g/dL (31-36); Mean Corpuscular Hemoglobin 30 pg (27-31); Mean Corpuscular Volume 85 fL (80-94); Mean Platelet Volume 13.2 fL (7.4-10.4); Nucleated Red Blood Cells % 0.1; Platelet Count 118 10^3/uL (150-450); Red Blood Count 5.44 10^6 /uL (4.18-5.48); Red Cell Distribution Width 13 % (10-15); White Blood Count 9.6 10^3/uL (3.5-10.8)
[2019-10-31 19:15] LABS: ALT 24 U/L (7-52); AST 17 U/L (13-39); Albumin 4.8 g/dL (3.2-5.2); Albumin/Globulin Ratio 1.7 (1-3); Alkaline Phosphatase 135 U/L (34-104); Anion Gap 9 mmol/L (2-11); BUN/Creatinine Ratio 8.6 (8-20); Blood Urea Nitrogen 7 mg/dL (6-24); CO2 Carbon Dioxide 24 mmol/L (22-32); Calcium 9.8 mg/dL (8.6-10.3); Chloride 103 mmol/L (101-111); EGFR African American 139.4 (>60); EGFR Non-African American 115.2 (>60); Globulin 2.9 g/dL (2-4); Glucose 96 mg/dL (70-100); Potassium 3.7 mmol/L (3.5-5.0); Sodium 136 mmol/L (135-145); Total Protein 7.7 g/dL (6.4-8.9)
[2019-10-31 19:16] LABS: Acetaminophen < 15 mcg/mL; Alcohol, S < 10 mg/dL (<10); Salicylate < 2.50 mg/dL (<30)
[2019-10-31 19:24] LABS: Urine Appearance Cloudy; Urine Bilirubin Negative (Negative); Urine Blood Negative (Negative); Urine Color Yellow; Urine Glucose Negative (Negative); Urine Ketones 2+ (Negative); Urine Nitrite Negative (Negative); Urine Protein 1+(30 mg/dL) (Negative); Urine Specific Gravity 1.023 (1.010-1.030); Urine Urobilinogen Negative (Negative)
[2019-10-31 19:33] LABS: Urine Bacteria Absent (Absent); Urine Red Blood Cell Absent (Absent); Urine White Blood Cell Trace(0-5/hpf) (Absent)
[2019-10-31 19:40] LABS: Urine Benzodiazepine Screen None Detected (None Detect); Urine Opiates Screen None Detected (None Detect)
[2019-10-31] MEDS ORDERED: LORazepam 1 mg TAB (*) PO ONE (20:56)
[2019-10-31] MEDS ORDERED: Al Hydrox/Mg Hydrox/Simet LIQ 30 ML UDC PO PRN (22:26)
[2019-11-01] MEDS: Vitamin THERAPEUTIC TAB PO SCH (09:09)
[2019-11-02] MEDS: Vitamin THERAPEUTIC TAB PO SCH (08:38)
[2019-11-03] MEDS: Vitamin THERAPEUTIC TAB PO SCH (08:22)
[2019-11-04] MEDS: Vitamin THERAPEUTIC TAB PO SCH (08:36)
[2019-11-04 09:12] VITALS: BP 133/83
== END 2019-11-04 15:40 | disposition home or self-care (01) | DRG 885 ==
LOC: ED 18:16 → BSU 23:37
PROVIDERS: ADMIT Psychiatry & Neurology Psychiatry; ATTEND Psychiatry & Neurology Psychiatry